=== PATIENT | female | born 1970 | race Caucasian/White ===

== ENCOUNTER 2020-10-13 13:33 | Observation (INO) | payer BC, SELFPAY ==
[2020-10-13 13:48] VITALS: BP 152/107; PULSE 101; RESP 14; TEMP 36.1; O2SAT 98; BMI 43.7
--- NOTE | 2020-10-13 14:03 | XRR_ITS ---
PROCEDURE INFORMATION: Exam: XR Chest, 1 View Exam date and time: 10/13/2020 2:05 PM Age: 50 years old Clinical indication: Chest pain; Type not specified TECHNIQUE: Imaging protocol: XR of the chest Views: 1 view. COMPARISON: No relevant prior studies available. FINDINGS: Lungs: No consolidation. Pleural space: No pleural effusion. No pneumothorax. Heart/Mediastinum: No cardiomegaly. Bones/joints: Unremarkable. XR/XR chest 1V portable [id number] IMPRESSION: No acute cardiopulmonary disease demonstrated.
[2020-10-13 14:21] LABS: Basophils # 0.1 10^3/uL (0.0-0.1); Basophils % 0.7 %; Eosinophils # 0.2 10^3/uL (0.0-0.8); Eosinophils % 1.7 %; Hematocrit 36.5 % (37.0-47.0); Lymphocytes % 21.5 %; Mean Corpuscular HGB Conc 30.1 g/dL (30.0-36.0); Mean Corpuscular Hemoglobin 22.9 pg (28.0-34.0); Mean Corpuscular Volume 75.9 fL (81-99); Mean Platelet Volume 11.7 fL (7.4-10.4); Monocytes # 0.7 10^3/uL (0.2-0.9); Monocytes % 7.1 %; Neutrophils % 68.7 %; Nucleated Red Blood Cells % 0 %; Platelet Count 436 10^3/cmm (130-400); Red Blood Count 4.81 10^6/uL (4.1-5.3); Red Cell Distribution Width 18.3 % (12.1-15.1); White Blood Count 9.5 10^3/uL (4.0-10.0)
[2020-10-13] MEDS: aspirin 81 mg Chew Tablet 324 MG PO (14:27)
[2020-10-13 14:34] LABS: D Dimer 0.33 ug/mIFEU (0-0.59)
--- NOTE | 2020-10-13 14:36 | PC.NURSE ---
Pt states her chest pain is very mild at rest and only starts to hurt when she exerts herself, pt does not wish to take the nitroglycerin at this time. Dr. Bonilla notified.
[2020-10-13 14:39] LABS: Troponin(5th) Baseline 60 ng/L (0-10)
--- NOTE | 2020-10-13 14:40 | ED_ITS ---
HPI - Chest Pain General: Chief Complaint: Chest Pain Stated Complaint: chest pain Time Seen by Provider: 10/13/20 13:52 History of Present Illness: HPI narrative: The patient is a 50-year-old female with past medical history hypertension and diabetes. She says about 3 weeks ago she started having midsternal chest pain that radiates to her left neck and sometimes in between her shoulder blades. She said she made lots of excuses for what was actually causing her symptoms but eventually settled that it might be her heart. Her symptoms are worse with exertion and sometimes happen while she is shopping and walking at [employer]. When she rests the pain improves. The episodes have been increasing in number and length and last night she was woken from her sleep with the pressure and it has continued. Any exertion makes it worse and when she rests it does improve however she is worried. She says currently it is a 5 out of 10. I ordered nitroglycerin and she declined taking it saying her chest does not hurt right now she does not need it. No prior history of coronary artery disease known MD complaint: chest heaviness and chest discomfort Timing of current episode: episodic Onset: during rest and during exertion Pain location: substernal Pain radiation: back and neck Severity: moderate Quality: tightness and heaviness Relieving factors: remaining still and other (rest) Associated symptoms: Reports no associated symptoms, abdominal pain and dyspnea; Deny fever(s), leg edema, nausea, palpitations or vomiting Treatment prior to arrival: none Review of Systems General: Reports: 10 or more systems reviewed and unremarkable except in HPI and below Const: Denies: fever(s) Eyes: Denies: change in vision, blurry vision or eye redness ENMT: Denies: throat pain, swelling of lips/tongue, ear or mastoid pain or nasal congestion Card: Reports: chest pain; Denies: palpitations, irregular heart rhythm, edema, swelling of feet/ankles, dyspnea on exertion or orthopnea Resp: Reports: dyspnea GI: Reports: abdominal pain; Denies: nausea or vomiting : Denies: flank pain, difficulty voiding, urinary frequency or urinary urgency Musc: Denies: neck pain, back pain, extremity pain, joint pain, joint redness, limited range of motion or muscle weakness Skin/Breast: Denies: rash, pruritus, erythema, skin pain or skin tenderness Neuro: Denies: headache(s), numbness in extremities, weakness in extremities, sensory changes, difficulty walking, dizziness, confusion or Slurred speech present Psych: Denies: anxiety or depression Endo: Denies: polyuria All/Imm: Denies: urticaria, throat swelling or tongue swelling PFSH ED PFSH: Medical History (Updated 10/13/20 @ 18:17 by Cesar Wilkerson MD) Hypertension Hypothyroidism Type 2 diabetes mellitus Surgical History (Updated 10/13/20 @ 18:19 by Cesar Wilkerson MD) History of Family History (Updated 10/13/20 @ 18:20 by Cesar Wilkerson MD) Mother Rheumatoid arthritis Leukemia Father Type 1 diabetes mellitus Social History (Updated 10/13/20 @ 18:19 by Cesar Wilkerson MD) Smoking and tobacco status: never smoked Alcohol intake: never Substance/Drug Use: never Physical Exam Const: COMMON NORMALS: no acute distress, average body habitus, patient oriented x3, no limitations, healthy appearing, alert and well nourished GENERAL APPEARANCE: cooperative, comfortable, well kempt and well developed ORIENTATION/CONSCIOUSNESS: Yes awake, Yes oriented to person, Yes oriented to place and Yes oriented to time HENMT: COMMON NORMALS: normocephalic, external ears normal and Normal external nose present HEAD & SCALP: normal to inspection and normocephalic NOSE: Normal external nose present EXTERNAL EAR: Yes external ears normal MOUTH: Normal oral and palatal mucosa present THROAT: posterior oropharynx normal Eye: COMMON NORMALS: Equal, round and reactive pupils present and EOMs intact bilaterally GENERAL EYE: appearance normal, both eyes and all related structures PUPIL: Yes Equal, round and reactive pupils present Neck/C-Spine: COMMON NORMALS: full ROM, no lymphadenopathy, no meningeal signs and no JVD GENERAL: Yes normal visual inspection Lymph: LYMPHATIC: no lymphadenopathy noted Chest: COMMONS NORMALS: normal inspection of the chest and normal palpation of entire chest wall Resp: COMMON NORMALS: normal respiratory effort, No retractions, No use of accessory muscles, clear to auscultation bilaterally and percussion normal EFFORT & INSPECTION: Yes able to speak in complete sentences AUSCULTATION: clear to auscultation bilaterally PERCUSSION: percussion normal Cardio: COMMON NORMALS: no JVD, regular rhythm, S1 normal heart sound present, S2 normal heart sound present and Peripheral pulses 2+ throughout RATE: tachycardic (rate 100. anxious.) RHYTHM: regular rhythm HEART SOUNDS: S1 normal heart sound present and S2 normal heart sound present PERIPHERAL PULSES: Peripheral pulses 2+ throughout GI: COMMON NORMALS: Normal to inspection, nondistended, normoactive bowel sounds present, Soft to palpation, non-tender and no masses INSPECTION: Yes normal to inspection PALPATION: Yes Soft to palpation : COMMON NORMALS: Yes no CVA tenderness BLADDER/KIDNEY EXAM: Yes no CVA tenderness Back/Pelvis: COMMON NORMALS: no CVA tenderness, thoracic and lumbar spine normal to inspection, no thoracic nor lumbar tenderness and thoraco-lumbar ROM normal Extremity: COMMON NORMALS: normal to inspection, full ROM, capillary refill normal, no joint enlargement and no pedal edema GENERAL: Yes normal exam except as noted Neuro: COMMON NORMALS: patient oriented x3, CN's II-XII intact bilaterally, moves all extremities, no focal motor deficits, no sensory deficits noted and gait normal SENSORIUM/ORIENTATION: Yes alert, Yes oriented to person, Yes oriented to place and Yes oriented to time MENINGEAL SIGNS: Yes no meningeal signs Psych: COMMON NORMALS: mental status grossly normal, Normal thought process present, cooperative, normal affect and speech normal APPEARANCE: Yes well kempt ATTITUDE: Yes calm SPEECH: Yes normal speech THOUGHT PROCESS: Normal thought process present Skin: COMMON NORMALS: no rashes or lesions noted GENERAL SKIN EXAM: no rashes or lesions noted Course Vital Signs: Vital signs: Vital Signs Temperature 97.0 F L 10/13/20 13:48 Pulse Rate 100 10/13/20 18:29 Respiratory Rate 20 H 10/13/20 18:29 Blood Pressure 148/104 10/13/20 18:29 Pulse Oximetry 99 10/13/20 17:48 MDM - Chest Pain MDM Narrative: Medical decision making narrative: The patient is a 50-year-old female who came in with typical angina symptoms. Troponin and EKG were normal. Discussed with the patient and recommended admission upstairs. She understands and accepts this. Dr. Wilkerson accepts for observation upstairs to the cardiac stepdown unit Differential Diagnosis: Cardiac arrest differential diagnosis: Likely acute myocardial infarction Lab Data: Labs: Lab Results 12/25/20 12/25/20 12/25/20 Range/Units 14:08 14:08 14:08 WBC 9.5 (4.0-10.0) 10^3/ uL RBC 4.81 (4.1-5.3) 10^6/u L Hgb 11.0 L (11.5-15.3) g/dL Hct 36.5 L (37.0-47.0) % MCV 75.9 L (81-99) fL MCH 22.9 L (28.0-34.0) pg MCHC 30.1 (30.0-36.0) g/dL RDW 18.3 H (12.1-15.1) % Plt Count 436 H (130-400) 10^3/c mm MPV 11.7 H (7.4-10.4) fL Neut % (Auto) 68.7 % Lymph % (Auto) 21.5 % [place] % (Auto) 7.1 % Eos % (Auto) 1.7 % Baso % (Auto) 0.7 % Neut # (Auto) 6.50 (1.8-7.7) 10^3/u L Lymph # (Auto) 2.0 (0.8-4.8) 10^3/u L [place] # (Auto) 0.7 (0.2-0.9) 10^3/u L Eos # (Auto) 0.2 (0.0-0.8) 10^3/u L Baso # (Auto) 0.1 (0.0-0.1) 10^3/u L Nucleated RBC % (a uto) 0 % Nucleated RBCs # 0.0 /100WBC D-Dimer 0.33 (0-0.59) ug/mIFE U Sodium 138 (136-145) mmol/L Potassium 4.4 (3.5-5.1) mmol/L Chloride 101 (98-107) mmol/L Carbon Dioxide 26 (22-29) mmol/L Anion Gap 15.4 (5-19) BUN 12 (6-20) mg/dL Creatinine 0.8 (0.5-0.9) mg/dL GFR Calculation 75.9 L (90-130) mL/min Glucose 142 H (65-115) mg/dL Estimat Average Gl ucose Hemoglobin A1c (4.0-6.0) % Calculated Osmolal ity 288 (285-295) mOsm/k g Calcium 9.4 (8.5-10.5) mg/dL Total Bilirubin 0.4 (0.15-1.2) mg/dL AST 14 (0-32) U/L ALT 15 (0-33) U/L Alkaline Phosphata se 99 (35-105) IU/L Troponin T Baselin e (0-10) ng/L Troponin T 120 Min [place] (0-10) ng/L Delta Troponin T (0-10) ABS# NT-Pro-B Natriuret Pep 187 H (0-125) pg/mL Total Protein 7.6 (6.6-8.7) g/dL Albumin 4.1 (3.5-5.2) g/dL Globulin 3.5 (1.3-4.6) g/dL Urine Color (Yellow) Urine Appearance (CLEAR) Urine pH (5-7) Ur Specific Gravit y (1.005-1.030) Urine Protein (Negative) Urine Glucose (UA) (Normal) Urine Ketones (Negative) Urine Blood (Negative) Urine Nitrate (Negative) Urine Bilirubin (Negative) Urine Urobilinogen (Negative) mg/dL Ur Leukocyte Yessenia ase (Negative) 10/13/20 10/13/20 10/13/20 Range/Units 14:08 14:08 14:20 WBC (4.0-10.0) 10^3/ uL RBC (4.1-5.3) 10^6/u L Hgb (11.5-15.3) g/dL Hct (37.0-47.0) % MCV (81-99) fL MCH (28.0-34.0) pg MCHC (30.0-36.0) g/dL RDW (12.1-15.1) % Plt Count (130-400) 10^3/c mm MPV (7.4-10.4) fL Neut % (Auto) % Lymph % (Auto) % [place] % (Auto) % Eos % (Auto) % Baso % (Auto) % Neut # (Auto) (1.8-7.7) 10^3/u L Lymph # (Auto) (0.8-4.8) 10^3/u L [place] # (Auto) (0.2-0.9) 10^3/u L Eos # (Auto) (0.0-0.8) 10^3/u L Baso # (Auto) (0.0-0.1) 10^3/u L Nucleated RBC % (a uto) % Nucleated RBCs # /100WBC D-Dimer (0-0.59) ug/mIFE U Sodium (136-145) mmol/L Potassium (3.5-5.1) mmol/L Chloride (98-107) mmol/L Carbon Dioxide (22-29) mmol/L Anion Gap (5-19) BUN (6-20) mg/dL Creatinine (0.5-0.9) mg/dL GFR Calculation (90-130) mL/min Glucose (65-115) mg/dL Estimat Average Gl ucose 148 Hemoglobin A1c 6.8 H (4.0-6.0) % Calculated Osmolal ity (285-295) mOsm/k g Calcium (8.5-10.5) mg/dL Total Bilirubin (0.15-1.2) mg/dL AST (0-32) U/L ALT (0-33) U/L Alkaline Phosphata se (35-105) IU/L Troponin T Baselin e 60 H (0-10) ng/L Troponin T 120 Min [place] (0-10) ng/L Delta Troponin T (0-10) ABS# NT-Pro-B Natriuret Pep (0-125) pg/mL Total Protein (6.6-8.7) g/dL Albumin (3.5-5.2) g/dL Globulin (1.3-4.6) g/dL Urine Color Straw (Yellow) Urine Appearance Clear (CLEAR) Urine pH 5 (5-7) Ur Specific Gravit y 1.020 (1.005-1.030) Urine Protein Neg (Negative) Urine Glucose (UA) Norm (Normal) Urine Ketones Negative (Negative) Urine Blood Neg (Negative) Urine Nitrate Negative (Negative) Urine Bilirubin Neg (Negative) Urine Urobilinogen Norm (Negative) mg/dL Ur Leukocyte Yessenia ase Negative (Negative) 10/13/ Range/Units 15:47 WBC (4.0-10.0) 10^3/ uL RBC (4.1-5.3) 10^6/u L Hgb (11.5-15.3) g/dL Hct (37.0-47.0) % MCV (81-99) fL MCH (28.0-34.0) pg MCHC (30.0-36.0) g/dL RDW (12.1-15.1) % Plt Count (130-400) 10^3/c mm MPV (7.4-10.4) fL Neut % (Auto) % Lymph % (Auto) % [place] % (Auto) % Eos % (Auto) % Baso % (Auto) % Neut # (Auto) (1.8-7.7) 10^3/u L Lymph # (Auto) (0.8-4.8) 10^3/u L [place] # (Auto) (0.2-0.9) 10^3/u L Eos # (Auto) (0.0-0.8) 10^3/u L Baso # (Auto) (0.0-0.1) 10^3/u L Nucleated RBC % (a uto) % Nucleated RBCs # /100WBC D-Dimer (0-0.59) ug/mIFE U Sodium (136-145) mmol/L Potassium (3.5-5.1) mmol/L Chloride (98-107) mmol/L Carbon Dioxide (22-29) mmol/L Anion Gap (5-19) BUN (6-20) mg/dL Creatinine (0.5-0.9) mg/dL GFR Calculation (90-130) mL/min Glucose (65-115) mg/dL Estimat Average Gl ucose Hemoglobin A1c (4.0-6.0) % Calculated Osmolal ity (285-295) mOsm/k g Calcium (8.5-10.5) mg/dL Total Bilirubin (0.15-1.2) mg/dL AST (0-32) U/L ALT (0-33) U/L Alkaline Phosphata se (35-105) IU/L Troponin T Baselin e (0-10) ng/L Troponin T 120 Min [place] 63.25 H (0-10) ng/L Delta Troponin T 3.25 (0-10) ABS# NT-Pro-B Natriuret Pep (0-125) pg/mL Total Protein (6.6-8.7) g/dL Albumin (3.5-5.2) g/dL Globulin (1.3-4.6) g/dL Urine Color (Yellow) Urine Appearance (CLEAR) Urine pH (5-7) Ur Specific Gravit y (1.005-1.030) Urine Protein (Negative) Urine Glucose (UA) (Normal) Urine Ketones (Negative) Urine Blood (Negative) Urine Nitrate (Negative) Urine Bilirubin (Negative) Urine Urobilinogen (Negative) mg/dL Ur Leukocyte Yessenia ase (Negative) Discharge Plan Discharge Patient Disposition: Placed in Observation Admit Provider: Cesar Wilkerson Clinical Impression: Chest pain Qualifiers: Chest pain type: unspecified Qualified Code(s): R07.9 - Chest pain, unspecified Discharge Diet: Usual diet Discharge Activity: Resume usual activity Coding Level of Care Code ED Operating Room Surgical Technologist for [facility] Fwd Exam Comprehensive
[2020-10-13 14:47] LABS: Alanine Aminotransferase 15 U/L (0-33); Albumin Level 4.1 g/dL (3.5-5.2); Alkaline Phosphatase 99 IU/L (35-105); Anion Gap 15.4 (5-19); Aspartate Amino Transferase 14 U/L (0-32); Blood Urea Nitrogen 12 mg/dL (6-20); Calcium 9.4 mg/dL (8.5-10.5); Carbon Dioxide 26 mmol/L (22-29); Chloride 101 mmol/L (98-107); Globulin 3.5 g/dL (1.3-4.6); Glomerular Filtration Rate 75.9 mL/min (90-130); Glucose 142 mg/dL (65-115); NT Pro B Type Natriuretic Pept 187 pg/mL (0-125); Osmolality Calculated 288 mOsm/kg (285-295); Potassium 4.4 mmol/L (3.5-5.1); Sodium 138 mmol/L (136-145); Total Bilirubin 0.4 mg/dL (0.15-1.2); Total Protein 7.6 g/dL (6.6-8.7)
[2020-10-13 14:51] LABS: Add Urine Microscopic? NO
[2020-10-13 14:53] LABS: Bilirubin Urine Neg (Negative); Blood Urine Neg (Negative); Glucose Urine UA Norm (Normal); Ketones Urine Negative (Negative); Leukocyte Esterase Urine Negative (Negative); Nitrate Urine Negative (Negative); Protein Urine Neg (Negative); Urine Appearance Clear (CLEAR); Urine Color Straw (Yellow); Urobilinogen Urine Norm (Negative); pH Urine 5 (5-7)
--- NOTE | 2020-10-13 16:03 | ECG_ITS ---
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 Measurements Intervals [place] Rate: 86 P: 28 AK: 162 QRS: 21 QRSD: 88 T: 12 QT: 350 QTc: 421 Interpretive Statements SINUS RHYTHM MINIMAL ST DEPRESSION [0.025+ mV ST DEPRESSION] No previous ECG available for comparison Electronically Signed On 10-14-2020 16:59:53 AUDITING CODER by Nomi Dolan M.D. [email or web address]/store/OM/[id number]
[2020-10-13 16:10] LABS: Troponin 5 2HR 63.25 ng/L (0-10); Troponin 5 2HR Delta 3.25 ABS# (0-10)
--- NOTE | 2020-10-13 16:57 | PC.NURSE ---
EKG done at 1635 and shown to ER doctor
[2020-10-13 17:48] VITALS: BP 151/84; PULSE 83; RESP 14; O2SAT 99
--- NOTE | 2020-10-13 18:15 | P.HP_ITS ---
Providers/Chief Complaint Admitting Physician: Cesar Wilkerson MD Primary Care Provider: Alondra Aden APN Chief Complaint: chest pain History of Present Illness Ira Leal is a 50 year old female this is a 50-year-old female with a past medical history of hypothyroidism, noninsulin-dependent type 2 diabetes mellitus, hypertension, who presents [facility] due to chest pain and shortness of breath. Patient tells me that for the last 3 weeks she has been having chest pain and shortness of breath with exertion. She describes the chest pain is substernal, sometimes achy sometimes sharp, lasting a few minutes to a few hours, typically associated with exertion, radiates to the back, radiates to the jaw, associated with shortness of breath. She tells me that she found it very odd that with minimal exertion she was feeling short of breath, improved with rest. She tells me last night she was developing substernal chest pain that would wake her up in the middle of night. No diaphoresis, no lightheaded, dizziness. No cardiovascular history. No history of CHF. No history of smoking. No cough, no sinus symptoms, no loss of taste, no loss of smell, no known exposure to COVID-19, is never tested positive for COVID-19, last hemoglobin A1c is 6, blood pressures are well controlled Review of Systems Const: Denies: fever(s), chills, fatigue or malaise Eyes: Denies: change in vision or blurry vision ENMT: Denies: nasal congestion Card: Reports: chest pain Resp: Reports: dyspnea; Denies: productive cough, non-productive cough or wheezing GI: Denies: abdominal pain, nausea, vomiting, hematemesis, diarrhea, constipation, hematochezia or melena : Denies: flank pain, dysuria or urinary frequency Musc: Denies: neck pain or back pain Skin/Breast: Denies: rash Neuro: Denies: headache(s), dizziness or vertigo Psych: Denies: anxiety or depression Endo: Denies: polyuria or polydipsia Medications/Allergies Home Medications Medication Instructions Recorded Confirmed Last Taken Type acetaminophen [Tylenol] 325 mg PO QID PRN 10/13/20 10/13/20 Unknown History guaifenesin [Mucinex] 600 mg PO Q12H PRN 10/13/20 10/13/20 Unknown History levothyroxine [Synthroid] 150 mcg PO DAILY@0700 10/13/20 10/13/20 Unknown History metformin 500 mg PO DAILY@0700 10/13/20 10/13/20 Unknown History metoprolol succinate 50 mg PO BID@0700,2100 10/13/20 10/13/20 Unknown History Allergies Allergy/AdvReac Type Severity Reaction Status Date / Time No Known Allergies Allergy Verified 10/13/20 13:47 PFSH Acute PFSH: Medical History (Updated 10/13/20 @ 18:17 by Cesar Wilkerson MD) Hypertension Hypothyroidism Type 2 diabetes mellitus Surgical History (Updated 10/13/20 @ 18:19 by Cesar Wilkerson MD) History of Family History (Updated 10/13/20 @ 18:20 by Cesar Wilkerson MD) Mother Rheumatoid arthritis Leukemia Father Type 1 diabetes mellitus Social History (Updated 10/13/20 @ 18:19 by Cesar Wilkerson MD) Smoking and tobacco status: never smoked Alcohol intake: never Substance/Drug Use: never Vitals/I&O/Wt Last Vital Signs Temp 97.0 F L 10/13/20 13:48 Pulse 83 10/13/20 17:48 Resp 14 10/13/20 17:48 BP 151/84 10/13/20 17:48 Pulse Ox 99 10/13/20 17:48 Weight last 48 hrs Weight 112.037 kg Physical Exam Const: COMMON NORMALS: no acute distress and patient oriented x3 GENERAL APPEARANCE: cooperative and comfortable HENMT: COMMON NORMALS: normocephalic HEAD & SCALP: normocephalic Eye: COMMON NORMALS: Equal, round and reactive pupils present and EOMs intact bilaterally GENERAL EYE: appearance normal, both eyes and all related structures PUPIL: Yes Equal, round and reactive pupils present Neck/C-Spine: COMMON NORMALS: full ROM, no lymphadenopathy, no JVD and Thyroid normal THYROID: Thyroid normal Lymph: LYMPHATIC: no lymphadenopathy noted Resp: COMMON NORMALS: normal respiratory effort, No retractions, No use of accessory muscles and clear to auscultation bilaterally AUSCULTATION: clear to auscultation bilaterally Cardio: COMMON NORMALS: no JVD, regular rate, regular rhythm, S1 normal heart sound present, S2 normal heart sound present, No gallops present (Cardio), No clicks present (Cardio) and No murmurs present (Cardio) RATE: regular rate RHYTHM: regular rhythm HEART SOUNDS: S1 normal heart sound present and S2 normal heart sound present GI: COMMON NORMALS: Normal to inspection, nondistended, normoactive bowel sounds present, Soft to palpation, non-tender and No hepatosplenomegaly present PALPATION: Yes Soft to palpation and Yes No hepatosplenomegaly present Extremity: COMMON NORMALS: normal to inspection, full ROM and no pedal edema Neuro: COMMON NORMALS: patient oriented x3, CN's II-XII intact bilaterally, moves all extremities and no focal motor deficits Psych: COMMON NORMALS: mental status grossly normal, Normal thought process present and cooperative THOUGHT PROCESS: Normal thought process present Data : 10/13/20 14:08 10/13/20 14:08 A&P Assessment and plan (1) Chest pain: -Chest pain and shortness of breath with exertion -First troponin 60, 120-minute 63.25, delta 3.25 -BNP 187 -D-dimer 0.33 -No significant leukocytosis -EKG shows ST depressions 2, 3 aVF -No active chest pain Plan: -Admit to cardiac stepdown unit -Aspirin, statin, metoprolol -Nitro as needed -Serial troponins, serial EKGs -No current need for therapeutic Lovenox, however if troponins elevate and has significant delta we will start her EKG changes or recurrent chest pain -Echocardiogram ordered -We will discuss with cardiology once full work-up is back -Full code -Lovenox for DVT prophylaxis Status: Acute Qualifiers: Chest pain type: unspecified Qualified Code(s): R07.9 - Chest pain, unspecified (2) Hypothyroidism: Continue levothyroxine Status: Acute (3) Type 2 diabetes mellitus: Low-dose sliding scale Status: Acute (4) Hypertension: Metoprolol Status: Acute Attestations Medical Necessity Statement*: Patient requires hospitalization outpatient with observation, for chest pain Coding Level of Care Code Acute [facility] Diagnoses Chest pain R07.9 Chest pain type: unspecified Hypothyroidism E03.9 Type 2 diabetes mellitus E11.9 Hypertension I10
[2020-10-13 18:29] VITALS: BP 148/104; PULSE 100; RESP 20
[2020-10-13 19:04] LABS: Estmated Average Glucose 148; Hemoglobin A1C 6.8 % (4.0-6.0)
[2020-10-13 19:21] LABS: C Reactive Protein 12.4 mg/L (0.0-4.9); Magnesium 1.9 mg/dL (1.7-2.3); Thyroid Stimulating Hormone 4.24 uIU/mL (0.27-4.20)
[2020-10-13] MEDS: enoxaparin 40 mg/0.4 mL Syringe SUBCUT (19:23)
[2020-10-13 20:02] LABS: Erythrocyte Sedimentation Rate 27 mm/hr (0-15)
--- NOTE | 2020-10-13 20:03 | ECG_ITS ---
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 Measurements Intervals [place] Rate: 82 P: 39 SC: 169 QRS: 37 QRSD: 90 T: 44 QT: 376 QTc: 442 Interpretive Statements SINUS RHYTHM Compared to ECG 10/13/2020 16:31:43 ST (T wave) deviation no longer present Electronically Signed On 10-14-2020 16:59:04 LABEL DESIGNER by Nomi Dolan M.D. [id number]
[2020-10-13 20:40] VITALS: BP 134/87; PULSE 89; RESP 20; TEMP 36.7; O2SAT 96
[2020-10-13] MEDS: metoprolol succinate ER (24 HR) 50 mg Tablet PO (20:42)
[2020-10-13] MEDS: atorvastatin 40 mg Tablet PO (20:42)
[2020-10-13 21:07] LABS: Troponin 5 6HR 75.08 ng/L (0-10)
[2020-10-13 21:11] LABS: Troponin 5 6HR Delta 15.08 ng/L (0-12)
[2020-10-13 22:00] VITALS: PULSE 74
[2020-10-13 23:12] VITALS: PULSE 70; RESP 16; O2SAT 96
[2020-10-14] VITALS (17 sets, daily range): BP systolic 110–156; BP diastolic 69–96; PULSE 66–106; RESP 10–20; TEMP 35.9–37.1; O2SAT 95–99
[2020-10-14 04:27] LABS: Basophils # 0.1 10^3/uL (0.0-0.1); Eosinophils # 0.2 10^3/uL (0.0-0.8); Hematocrit 33.1 % (37.0-47.0); Hemoglobin 9.6 g/dL (11.5-15.3); Lymphocytes # 2.4 10^3/uL (0.8-4.8); Lymphocytes % 30.7 %; Mean Corpuscular Hemoglobin 22.4 pg (28.0-34.0); Mean Corpuscular Volume 77.3 fL (81-99); Mean Platelet Volume 11.6 fL (7.4-10.4); Monocytes # 0.9 10^3/uL (0.2-0.9); Monocytes % 11.2 %; Neutrophils # 4.31 10^3/uL (1.8-7.7); Neutrophils % 54.8 %; Nucleated Red Blood Cells % 0 %; Platelet Count 371 10^3/cmm (130-400); Red Blood Count 4.28 10^6/uL (4.1-5.3); Red Cell Distribution Width 18.6 % (12.1-15.1); White Blood Count 7.9 10^3/uL (4.0-10.0)
[2020-10-14 04:48] LABS: Albumin Level 3.7 g/dL (3.5-5.2); Alkaline Phosphatase 82 IU/L (35-105); Chloride 103 mmol/L (98-107); Sodium 138 mmol/L (136-145)
[2020-10-14] MEDS: levothyroxine 150 mcg Tablet PO (07:10)
[2020-10-14] MEDS: metoprolol succinate ER (24 HR) 50 mg Tablet PO ×2 (07:10→20:32)
[2020-10-14 07:28] LABS: Alanine Aminotransferase 13 U/L (0-33); Aspartate Amino Transferase 13 U/L (0-32); Blood Urea Nitrogen 16 mg/dL (6-20); Calcium 8.8 mg/dL (8.5-10.5); Carbon Dioxide 24 mmol/L (22-29); Globulin 3.4 g/dL (1.3-4.6); Glomerular Filtration Rate 88.6 mL/min (90-130); Glucose 143 mg/dL (65-115); Osmolality Calculated 290 mOsm/kg (285-295); Phosphorus 3.6 mg/dL (2.5-4.5); Total Bilirubin 0.3 mg/dL (0.15-1.2); Total Protein 7.1 g/dL (6.6-8.7)
[2020-10-14] MEDS: clopidogrel 300 mg Tablet PO (08:31)
[2020-10-14] MEDS: aspirin 81 mg EC Tablet PO (08:32)
[2020-10-14] MEDS: heparin 5,000 unit/mL INJ 1 mL IV (08:32)
[2020-10-14] MEDS: heparin drip 25,000 UNIT/500 ML PREMIX 31 UNIT IV (08:32)
[2020-10-14 08:47] LABS: Folate Level 4.1 ng/mL (4.8-37.3)
[2020-10-14 08:48] LABS: Ferritin 10 ng/mL (15-150); Iron 19 ug/dL (37-145); Vitamin B12 230 pg/mL (232-1245)
--- NOTE | 2020-10-14 09:48 | PM.CONSULT ---
Providers/Reason For Consult Consulting Physican/Specialty*: Nomi Dolan MD/Cardiology Reason for Consult*: NSTEMI Attending Physician: Cesar Wilkerson MD Primary Care Provider: Alondra Aden APN History of Present Illness History of Present Illness 50-year-old female with a past medical history of hypothyroidism, noninsulin-dependent type 2 diabetes mellitus, hypertension, who presents to hospital with chest pain and shortness of breath. Per patient for the last 3 weeks she has been having chest pain and shortness of breath with exertion. She describes the chest pain is substernal, sometimes achy sometimes sharp, lasting a few minutes to a few hours, typically associated with exertion, radiates to the back, radiates to the jaw, associated with shortness of breath. She got concerned last night as pain woke her up from sleep. She does not have any prior history of cardiac disease. Her initial troponin was 60 that trended up to 75 6 hours. She is no longer having chest pain. EKG shows borderline ST depressions in inferior leads. Review of Systems Narrative: CONSTITUTIONAL: No fever chills weight loss or gain or night sweats. [] HEENT: Normocephalic, atraumatic.[] RESPIRATORY: No cough, sputum, hemoptysis or wheezing.[] CARDIOVASCULAR: Has shortness of breath, chest pain, no PND, orthopnea, lower extremity edema, presyncope or syncope. [] GI: no nausea vomiting diarrhea. [] [employer]: No numbness, tingling, weakness or loss of function in any part of the body. [] MUSCULOSKELETAL: No knee or joint pain or rashes. [] Meds/Allergies Home Medications and Allergies Home Medications Medication Instructions Recorded Confirmed Last Taken Type acetaminophen [Tylenol] 325 mg PO QID PRN 10/13/20 10/13/20 Unknown History guaifenesin [Mucinex] 600 mg PO Q12H PRN 10/13/20 10/13/20 Unknown History levothyroxine [Synthroid] 150 mcg PO DAILY@0700 10/13/20 10/13/20 Unknown History metformin 500 mg PO DAILY@0700 10/13/20 10/13/20 Unknown History metoprolol succinate 50 mg PO BID@0700,2100 10/13/20 10/13/20 Unknown History Allergies Allergy/AdvReac Type Severity Reaction Status Date / Time No Known Allergies Allergy Verified 10/13/20 13:47 Current Medications Current Medications Generic Name Dose Route Start Last Admin Trade Name Freq PRN Reason Stop Dose Admin Aspirin 81 mg 10/14/20 09:00 10/14/20 08:32 Aspirin 81 Mg Ec Tablet PO 81 mg DAILY TOBISA Administration Atorvastatin Calcium 40 mg 10/13/20 21:00 10/13/20 20:42 Atorvastatin 40 Mg Tablet PO 40 mg BEDTIME TOBIAS Administration Heparin Sodium (Beef Lung) 0 unit 10/14/20 07:51 10/14/20 08:32 Heparin 5,000 Unit/Ml Inj 1 Ml IV 5,500 unit PRN PRN Administration Heparin weight-base protocol Protocol Heparin Sodium/Sodium Chloride 25,000 unit in 500 mls @ 0 mls/hr 10/14/20 08:00 10/14/20 08:32 Heparin Drip IV 13.83 unit/kg/hr .Q0M TOBIAS 31 mls/hr Administration Protocol Per Protocol Levothyroxine Sodium 150 mcg 10/14/20 07:00 10/14/20 07:10 Levothyroxine 150 Mcg Tablet PO 150 mcg DAILY@0700 TOBIAS Administration Metoprolol Succinate 50 mg 10/13/20 21:00 10/14/20 07:10 Metoprolol Succinate Er (24 Hr) 50 Mg Tablet PO 50 mg BID@0700,2100 TOBIAS Administration PFSH Acute PFSH: Medical History Hypertension Hypothyroidism Type 2 diabetes mellitus Surgical History History of Family History Mother Rheumatoid arthritis Leukemia Father Type 1 diabetes mellitus Social History Smoking and tobacco status: never smoked Alcohol intake: never Substance/Drug Use: never Vitals/I&O/Wt Last Vital Signs Temp 98.3 F 10/14/20 07:30 Pulse 67 10/14/20 07:30 Resp 14 10/14/20 07:30 BP 130/69 10/14/20 07:30 Pulse Ox 99 10/14/20 07:30 10/13/20 10/14/20 10/14/20 22:59 06:59 14:59 Intake Total 50 / 50 0 / 50 0 / 0 Output Total 0 / 0 Balance 50 / 50 0 / 50 0 / 0 Weight last 48 hrs Weight 244 lb Weight 247 lb Physical Exam Narrative: EXAM NARRATIVE: GENERAL: Patient is alert, awake and oriented x3. [] NECK: No jugular vein distension. [] HEENT: No cyanosis. No icterus. No pallor. [] HEART: Regular S1 and S2. No murmur, rub or gallop. [] LUNGS: Clear to auscultate bilaterally. [] ABDOMEN: Soft, nontender and nondistended. Positive bowel sounds. No guarding, rebound or tenderness. [] CENTRAL NERVOUS SYSTEM: Grossly nonfocal. [] EXTREMITIES: Lower extremities with no edema bilaterally. Pulses palpable in the lower extremities, both dorsalis pedis and posterior tibial. [] A&P Assessment and plan (1) NSTEMI (non-ST elevated myocardial infarction): Status: Acute (2) Type 2 diabetes mellitus: Status: Acute (3) Hypothyroidism: Status: Acute (4) Hypertension: Status: Acute Patient has typical chest pain symptoms and has troponin elevation. We will proceed with coronary angiography with possible percutaneous coronary intervention. I have discussed in detail risks and benefits of the procedure. Risks including bleeding, infection, abnormal kidney function, abnormal heart rhythm, heart attack, stroke or have been described. Patient understands the risks and benefits and wants to proceed with procedure. Continue aspirin and Plavix. Continue heparin drip. Order echocardiogram. Thank you for involving us with care of this patient. Please call with questions Coding Level of Care Code Acute Front Desk Agent for Demetrio Fwd Diagnoses NSTEMI (non-ST elevated myocardial infarction) I21.4 Type 2 diabetes mellitus E11.9 Hypothyroidism E03.9 Hypertension I10
--- NOTE | 2020-10-14 10:30 | XACV_ITS ---
Exam Room: [facility] Ht: 160 cm Wt: 111 kg BSA: 2.28 m2 Gender: Female : 1970 Any Known Allergies: No known allergies Exam Priority: Routine Procedure(s): Procedure Description: Diagnostic procedure Procedure Description: PCI procedure Procedure Description: Left Heart Catheterization Procedure Description: Drug Eluting Coronary Stent Procedure Description: PTCA Procedure Description: Miscellaneous Procedure Description: ACT Procedure Description: Coronary Angiography Diagnostic Cath Status: Urgent Diagnostic Findings * LM has mild luminal irregularities. * CX is a large vessel and gives rise to 2 large OM branches. No significant stenosis is noted in the left circumflex system. * LAD is a large vessel. * It has proximal to * mid Left Anterior Descending Coronary Artery: Severe 95% stenosis, ALTA: 2 flow. * RCA has 0% stenosis. * Coronary angiography shows right dominance. PCI Status: Urgent PCI Indication: NSTE - ACS Interventional Findings * IV heparin was administered to maintain an ACT above 250 seconds. XB 3.5 guide catheter was used to engage left main artery. We used a 0.014 run-through guidewire to cross the lesion and was placed in distal LAD. We used 2.5 x 15 mm semicompliant balloon to predilate the stenosis. This was followed by placement of 3.0 x 18 mm resolute Ham drug-eluting stent. At this time guidewire was removed and final angiogram was performed which showed ALTA-3 flow, no residual stenosis and excellent stent expansion. Guide catheter was removed. TR band was applied to achieve hemostasis. Patient left the Bottler in a stable condition.. * Mid Left Anterior Descending Coronary Artery: 95% stenosis treated with AB TREK 2.50X15 RX BALLOON and MDT R HAM 3.0X18 MI. 0% residual stenosis, ALTA: 3 flow. Conclusions 1. Proximal to 2. mid Left Anterior Descending Coronary Artery was treated with Balloon and Drug Eluting Stent. 3. There is severe coronary artery disease with one vessel disease. Recommendations * Transfer back to [facility]. * Aspirin and Plavix for at least 1 year. * Order echocardiogram. * Beta-jewel and lisinopril. * Patient follow-up with cardiology clinic in 4 weeks. Interventional RX Recommendation: PCI w/o planned CABG Diagnostic RX Recommendation: PCI w/o planned CABG Anticoagulation: Heparin Pressures Phase:Rest AO : 136 / 90 ( 111 ) @ 6:01:00 AM 131 / 87 ( 106 ) @ 6:01:00 AM 131 / 82 ( 102 ) @ 6:11:00 AM LV : 132 / -2 / @ 6:01:00 AM 129 / -1 / @ 6:01:00 AM Valves Phase:DefaultPhase AV : 0.0 @ 12:39:00 PM AV Mean Gradient: 0.0 @ 12:39:00 PM Clinical Evaluation EBL: 5mL-10mL Procedural Details Procedure Consent Obtained. Pre-Procedure Time Out. Identified patient by full name and date of as verbalized by the patient/guarantor. Does the consent match the physician's order: Yes. Accurate & Complete Informed Consent: Yes. Inpatient/Outpatient History & Physical on Chart: Yes. If H&P is completed, is and addenduem needed: No; If yes, is the addendum complete: N/A. Visualize and Verify Site with Patient/Guarantor: N/A. Relevant Radiology Images available: N/A. Pre-op teaching completed and patient verbalized understanding. The risks, benefits, and alternatives of sedation and/or procedure were discussed by physician. The patient agrees to continue. Procedure started. [facility] Clinical Fraility Score: 2: Well. Bottler Indications: ACS <= 24 hours. Chest Pain Symptom Assessment: Typical Angina Symptoms. Cardiovascular Instability: No. Correct patient, site and procedure confirmed by cath team. Physician arrived. PERRLA. Strong, equal hand wet finisher bilaterally. Lungs clear x 5 lobes. IV Site on Arrival: 20 gauge in the right anticubital. IV Fluids: 0.9% NaCl at KVO. 0 mL infused prior to sawyer cork slabs. Pre Procedural Pulses: bilateral radial was 2+. Oxygen started at 2liters/min via nasal canula. bilateral groins was prepped with chloroprep then draped in the usual sterile fashion. right radial was prepped with chloroprep then draped in the usual sterile fashion. Baseline sample Acquired. HR: 74 BPM. Equipment: 6F - Radial. Cardiac Cath Pack. ACIST Manifold Kit Model BT 2000. Heparinized Saline (2 units/mL), 1000 mL bag. Physician scrubbed in. Immediate Pre-Procedure Time Out. Correct Patient: Yes; Correct Procedure: Yes; Correct Site: Yes; Correct Patient Position: Yes; Correct Supplies: Yes; Dried Flammable Prep: Yes; Blood Products Available: N/A;. Lidocaine 1% infiltrated to the right radial. Arterial access obtained. A 5 cape verdean TIG catheter in over wire. EDP Sample taken: LV 132/-3,11; HR: 73 BPM; SpO2: Off%. Pullback taken: LV 129/-2,9; AO 136/90(111); Mean: 0mmHg, Peak to Peak: 0mmHg, SEP: 5sec/min; HR: 72 BPM; SpO2: Off%. ACT drawn. Results 126 seconds. Therapeutic limits - pre-heparin administration 90-150 seconds and monitoring heparin during a vascular procedure >250 seconds. Multiple views taken of left coronary artery. Catheter redirected to the RCA. Multiple views taken of right coronary artery. Catheter removed over the exchange wire. Inventory is CRD 6 FR XB 3.5 GUIDE. 6 cape verdean XB 3.5 guide catheter was inserted over the wire. ACT drawn. Results 194 seconds. Therapeutic limits - pre-heparin administration 90-150 seconds and monitoring heparin during a vascular procedure >250 seconds. Runthrough guidewire was advanced through the guide catheter to lesion in the mid LAD. Inflation number : 1 A AB LAUREANO 2.50X15 RX BALLOON was prepped and advanced across the Mid LAD , then inflated to 8 DIMITRIS for 0:13 seconds. Inflation number: 2 The AB TREK 2.50X15 RX BALLOON was reinflated across the Mid LAD, to 12 DIMITRIS for 0:26 seconds. Balloon out. Inflation Number : 3 A RAZA Garcia HAM 3.0X18 MI -Lot Number# [id number] exp date 04/24/2022 was prepped and advanced across the Mid LAD. The stent was deployed at 14 DIMITRIS for 0:29 seconds. Stent balloon out over wire. Wire out. Results checked. ACT drawn. Results 351 seconds. Therapeutic limits - pre-heparin administration 90-150 seconds and monitoring heparin during a vascular procedure >250 seconds. Guide catheter out. Physician scrubbed out. A TR Band was successful obtaining hemostatsis at the Right Radial artery insertion site. TR band placed. Hemostasis obtained. Post Procedure: Pulses reassessed and unchanged. PERRLA. Strong, equal hand wet finisher bilaterally. No VTE prophylaxis required. Medication's Wasted: Lidocaine 1% = 18 mL. Medication's Wasted: Nitro = 49.6 mg. Medication's Wasted: Heparin = 1000 units. Total IV fluids: 75 mL. Contrast type used: Omnipaque 300 mgI/mL, 500 mL bottle. Post-op diagnosis: severe mid LAD stenosis. Complications: none. Estimated blood loss: 5mL-10mL. PCI Indication: NSTE. Procedure completed. Patient transferred by wheelchair to 1st floor. Vital chart was stopped. Access Site Site: Right Radial artery Sheath Size: 6 Fr Hemostasis Method: TR Band Hemostasis Success: Successful Procedure Medications Start: 11:49 AM Stop: 11:49 AM Medication: Versed Amount: 1 mg Route: I.V. Start: 11:49 AM Stop: 11:49 AM Medication: Fentanyl Amount: 50 mcg Route: I.V. Start: 11:54 AM Stop: 11:54 AM Medication: Versed Amount: 1 mg Route: I.V. Start: 11:57 AM Stop: 11:57 AM Medication: Fentanyl Amount: 50 mcg Route: I.V. Start: 11:58 AM Stop: 11:58 AM Medication: Nitrogylcerin Amount: 200 mcg Route: I.A. Start: 12:00 PM Stop: 12:00 PM Medication: Versed Amount: 1 mg Route: I.V. Start: 12:04 PM Stop: 12:04 PM Medication: Heparin Amount: 6000 units Route: I.V. Start: 12:08 PM Stop: 12:08 PM Medication: Versed Amount: 1 mg Route: I.V. Start: 12:10 PM Stop: 12:10 PM Medication: Versed Amount: 1 mg Route: I.V. Start: 12:11 PM Stop: 12:11 PM Medication: Heparin Amount: 4000 units Route: I.V. Start: 12:17 PM Stop: 12:17 PM Medication: Versed Amount: 1 mg Route: I.V. Start: 12:25 PM Stop: 12:25 PM Medication: Nitrogylcerin Amount: 200 mcg Route: I.A. Start: 12:25 PM Stop: 12:25 PM Medication: Versed Amount: 1 mg Route: I.V. Start: 12:34 PM Stop: 12:34 PM Medication: Plavix Amount: 300 mg Route: P.O. I, the attending physician, have reviewed and verified all procedure medications. Yes, all medications given per verbal order History/Risk Factors Hypertension: Yes Dyslipidemia: No Peripheral Arterial Disease (PAD): No Myocardial Infarction (TN): No Obesity: Yes Renal Disease: No Tobacco Use: Never Prior Interventions PCI: No CABG: No Valve Surgery: No Report Signatures Finalized by Nomi Dolan MD on 10/20/2020 05:32 PM
[2020-10-14 11:01] LABS: Partial Thromboplastin Time 139.5 SECONDS (23.9-36.7)
--- NOTE | 2020-10-14 11:42 | PC.NURSE ---
off unit to qc lab technician via wheelchair.
--- NOTE | 2020-10-14 13:30 | PC.NURSE ---
From Lock Master Received pt from cath. Sleepy from post sedation. Tr Band intact on right wrist. No hematoma, bleeding or swelling. Pt reported of achy pain on the right radial wrist in a scale of 5/10. Radial pulse is palpable +3. Instructed pt on activity restrictions. Pt and verbalizes understanding. VS checked. Neurovascular checked.
[2020-10-14] MEDS: acetaminophen 325 mg Tablet 650 MG PO ×2 (14:29→20:32)
--- NOTE | 2020-10-14 15:00 | PC.NURSE ---
TR band off Removed Tr band. No bleeding or hematoma felt, minimal swelling noted by the distal side of the wrist. Pt stated it is achy and sore to the touch. Mild bruising noted. Applied pressure for 10 mins. Radial pulse is palpable. Hand is warm. Activity restrictions reinforced to pt.
--- NOTE | 2020-10-14 16:47 | PM.PN ---
Subjective Subjective: Interval history: Patient was examined this morning, she did have episode of chest pain overnight, none currently Vitals/I&O/Wt Last Vital Signs Temp 98.7 F 10/14/20 12:40 Pulse 79 10/14/20 15:15 Resp 14 10/14/20 15:15 BP 110/69 10/14/20 15:15 Pulse Ox 95 10/14/20 15:15 10/14/20 10/14/20 10/14/20 06:59 14:59 22:59 Intake Total 0 / 50 0 / 0 Output Total 0 / 0 Balance 0 / 50 0 / 0 Weight last 48 hrs Weight 110.677 kg Weight 112.037 kg Physical Exam Const: COMMON NORMALS: no acute distress and patient oriented x3 HENMT: COMMON NORMALS: normocephalic HEAD & SCALP: normocephalic Neck/C-Spine: COMMON NORMALS: no JVD Resp: COMMON NORMALS: normal respiratory effort, No retractions, No use of accessory muscles and clear to auscultation bilaterally AUSCULTATION: clear to auscultation bilaterally Cardio: COMMON NORMALS: no JVD, regular rate, regular rhythm, S1 normal heart sound present and S2 normal heart sound present RATE: regular rate RHYTHM: regular rhythm HEART SOUNDS: S1 normal heart sound present and S2 normal heart sound present GI: COMMON NORMALS: Normal to inspection, nondistended, normoactive bowel sounds present, Soft to palpation, non-tender, No hepatosplenomegaly present, no masses and no bruits PALPATION: Yes Soft to palpation and Yes No hepatosplenomegaly present Extremity: COMMON NORMALS: capillary refill normal, no clubbing, cyanosis or edema, no calf tenderness and no pedal edema Neuro: COMMON NORMALS: patient oriented x3 Psych: COMMON NORMALS: mental status grossly normal Data : 10/14/20 03:06 10/14/20 03:06 A&P Assessment and plan (1) Chest pain: -Chest pain and shortness of breath with exertion -First troponin 75, 6-hour delta was 15 -BNP 187 -D-dimer 0.33 -No significant leukocytosis -EKG shows ST depressions 2, 3 aVF -No active chest pain Plan: -Admit to cardiac stepdown unit -Aspirin, statin, metoprolol -Start heparin drip -Nitro as needed -Serial troponins, serial EKGs -GI consult -Echocardiogram ordered -We will discuss with cardiology once full work-up is back -Full code -Heparin for DVT prophylaxis Status: Acute Qualifiers: Chest pain type: unspecified Qualified Code(s): R07.9 - Chest pain, unspecified (2) Hypothyroidism: Continue levothyroxine Status: Acute (3) Type 2 diabetes mellitus: Low-dose sliding scale Status: Acute (4) Hypertension: Metoprolol Status: Acute (5) Anemia: -hgb 9, iron low, ferritin low -iron defeciency anemia -start Protonix, Carafate, monitor hemoglobin as she is on aspirin and Plavix -Monitor hemodynamics -We will need an outpatient colonoscopy Status: Acute Attestations Medical Necessity Statement*: Patient requires hospitalization for chest pain, anemia, Coding Level of Care Code Acute Porcelain Enameling Supervisor for [facility] Fwd Diagnoses Chest pain R07.9 Chest pain type: unspecified Hypothyroidism E03.9 Type 2 diabetes mellitus E11.9 Hypertension I10 Anemia D64.9
[2020-10-14] MEDS: ferrous sulfate EC 325 mg Tablet PO (18:27)
[2020-10-14] MEDS: pantoprazole DR 40 mg Tablet PO (18:27)
[2020-10-14] MEDS: sucralfate 1 gm Tablet PO ×2 (18:27→20:32)
--- NOTE | 2020-10-14 18:29 | USCV_ITS ---
Ira Leal Age: 50 Gender: F : 1970 Exam Date: 10/14/2020 06:32 Ordering Phys: Cesar Wilkerson MD Technologist: Minnie Mazariegos Exam Location: [facility] [place] Indication: Chest pain BP: / HR: Rhythm: Sinus Technical Quality: Fair MEASUREMENTS (Male / Female) Normal Values 2D ECHO LV Diastolic Diameter PLAX 4.9 cm 4.2 - 5.9 / 3.9 - 5.3 cm LV Systolic Diameter PLAX 3.5 cm LV Chamber Size 4.5 cm IVS Diastolic Thickness 0.8 cm 0.6 - 1.0 / 0.6 - 0.9 cm IVS Systolic Thickness 1.3 cm LVPW Diastolic Thickness 0.9 cm 0.6 - 1.0 / 0.6 - 0.9 cm LVPW Systolic Thickness 1.1 cm RV Chamber Size 2.3 cm LVOT Diameter 2.0 cm LV Ejection Fraction 2D Teich 52.7 % LV Ejection Fraction MOD 2C 57.2 % LV Ejection Fraction 2C AL 56.6 % LA Diameter 3.1 cm LA Width 3.0 cm LA Height 4.6 cm RA Width 2.9 cm RA Height 4.9 cm Aorta at Sinotubular Diameter 3.0 cm M-MODE LV Diastolic Diameter MM 4.9 cm 4.2 - 5.9 / 3.9 - 5.3 cm LV Systolic Diameter MM 3.1 cm LV Ejection Fraction MM Teich 64.7 % IVS Diastolic Thickness MM 1.2 cm 0.6 - 1.0 / 0.6 - 0.9 cm IVS Systolic Thickness MM 1.7 cm LVPW Diastolic Thickness MM 1.2 cm 0.6 - 1.0 / 0.6 - 0.9 cm LVPW Systolic Thickness MM 1.9 cm RV Diastolic Diameter MM 1.4 cm Aortic Annulus Diameter 2.9 cm LA Ao Ratio MM 1.2 MV E Point Septal Separation 0.5 cm DOPPLER AV Peak Velocity 109.0 cm/s LVOT Peak Velocity 93.0 cm/s AV Area Cont Eq vti 2.8 cm squared AV Area Cont Eq pk 2.7 cm squared MV Area PHT 4.0 cm squared Mitral E to A Ratio 1.0 MV E' Velocity 46.5 cm/s Mitral E to MV E' Ratio 7.5 Mitral E to LV E' Lateral Ratio 7.7 Mitral E to LV E' Septal Ratio 7.3 TV Peak E Velocity 47.0 cm/s Right Atrial Pressure 3.0 mmHg PV Peak Velocity 73.0 cm/s RV Acceleration Time 0.1 s RV Ejection Time 0.3 s RV AcT/ET 0.3 FINDINGS Left Ventricle Normal left ventricular size, systolic function and wall thickness. LVEF is 55 to 60%. Regional wall motion abnormalities cannot be assessed because of limited visualization. Normal left ventricular wall thickness. Normal diastolic filling pattern. Right Ventricle The right ventricle is normal in size and function. Right Atrium The right atrium is normal in size. Left Atrium The left atrium is normal in size. Mitral Valve Structurally normal mitral valve without significant stenosis or prolapse. There is no mitral regurgitation. Aortic Valve Not well-visualized. There is no significant aortic stenosis. There is no aortic regurgitation. Tricuspid Valve Grossly normal. Insufficient TR jet to calculate RVSP. Pulmonic Valve Not well-visualized. There is no pulmonic regurgitation. Pericardium Normal pericardium without effusion. Aorta Normal ascending aorta dimension. CONCLUSIONS This is technically difficult study. LV systolic function is normal with EF of 55 to 60%. Regional wall motion abnormalities cannot be assessed because of limited visualization. Diastolic function is normal. Valvular structures are not very well visualized however no gross abnormalities. Comparison studies are available. Nomi Dolan MD (Electronically Signed) Final Date: 14 October 2020 16:36 S
--- NOTE | 2020-10-14 19:30 | PC.NURSE ---
Received report from BROCK Bardales. Patient resting in bed watching tv. Patient s/p C with right radial access. Patient has dressing in place which is c,d,i. Patient c/o joint pain has ice in place to assist with this pain. No s/s of bleeding or hematoma formation observed.
[2020-10-14] MEDS: atorvastatin 40 mg Tablet PO (20:32)
[2020-10-15 00:31] VITALS: PULSE 84; O2SAT 93
[2020-10-15 03:54] VITALS: BP 129/82; PULSE 60; RESP 16; TEMP 36.6; O2SAT 97
[2020-10-15 04:43] LABS: Basophils # 0.1 10^3/uL (0.0-0.1); Basophils % 0.9 %; Eosinophils # 0.2 10^3/uL (0.0-0.8); Eosinophils % 2.1 %; Hematocrit 32.9 % (37.0-47.0); Hemoglobin 9.5 g/dL (11.5-15.3); Lymphocytes # 2.2 10^3/uL (0.8-4.8); Lymphocytes % 27.9 %; Mean Corpuscular HGB Conc 28.9 g/dL (30.0-36.0); Mean Corpuscular Hemoglobin 22.2 pg (28.0-34.0); Mean Platelet Volume 11.9 fL (7.4-10.4); Monocytes # 0.8 10^3/uL (0.2-0.9); Monocytes % 10.4 %; Neutrophils # 4.63 10^3/uL (1.8-7.7); Neutrophils % 58.4 %; Nucleated Red Blood Cells % 0 %; Platelet Count 355 10^3/cmm (130-400); Red Blood Count 4.27 10^6/uL (4.1-5.3); Red Cell Distribution Width 18.6 % (12.1-15.1); White Blood Count 7.9 10^3/uL (4.0-10.0)
[2020-10-15 05:06] LABS: Alanine Aminotransferase 12 U/L (0-33); Albumin Level 3.7 g/dL (3.5-5.2); Alkaline Phosphatase 88 IU/L (35-105); Anion Gap 11.8 (5-19); Aspartate Amino Transferase 13 U/L (0-32); Blood Urea Nitrogen 13 mg/dL (6-20); Calcium 8.5 mg/dL (8.5-10.5); Carbon Dioxide 27 mmol/L (22-29); Chloride 102 mmol/L (98-107); Globulin 3.4 g/dL (1.3-4.6); Glomerular Filtration Rate 75.9 mL/min (90-130); Glucose 142 mg/dL (65-115); Magnesium 1.9 mg/dL (1.7-2.3); Osmolality Calculated 287 mOsm/kg (285-295); Phosphorus 3.4 mg/dL (2.5-4.5); Potassium 3.8 mmol/L (3.5-5.1); Sodium 137 mmol/L (136-145); Total Bilirubin 0.3 mg/dL (0.15-1.2); Total Protein 7.1 g/dL (6.6-8.7)
[2020-10-15] MEDS: metoprolol succinate ER (24 HR) 50 mg Tablet PO (06:07)
[2020-10-15] MEDS: sucralfate 1 gm Tablet PO ×2 (06:07→12:59)
[2020-10-15] MEDS: levothyroxine 150 mcg Tablet PO (06:07)
[2020-10-15 08:11] VITALS: BP 140/78; PULSE 71; RESP 18; TEMP 36.4; O2SAT 98
[2020-10-15] MEDS: clopidogrel 75 mg Tablet PO (08:50)
[2020-10-15] MEDS: pantoprazole DR 40 mg Tablet PO (08:50)
[2020-10-15] MEDS: aspirin 81 mg EC Tablet PO (08:50)
[2020-10-15] MEDS: ferrous sulfate EC 325 mg Tablet PO (08:50)
--- NOTE | 2020-10-15 09:24 | PC.NURSE ---
Right wrist has mild swelling distal to puncture area. Mild bruising noted. Pt reported of achy pain but she verbalizes it is getting better than yesterday. Radial pulse palpable. Activity restrictions to right arm reinforced to pt.
--- NOTE | 2020-10-15 10:08 | PM.PN ---
Subjective Subjective: Interval history: Patient underwent PCI of proximal to mid LAD with drug-eluting stent x1 yesterday. Patient is doing well. Denies any complaints of chest pain, shortness of breath or palpitations. Has mild discomfort in the right radial access site. LVEF is normal on echocardiogram Vitals/I&O/Wt Last Vital Signs Temp 97.5 F L 10/15/20 08:11 Pulse 71 10/15/20 08:11 Resp 18 10/15/20 08:11 BP 140/78 10/15/20 08:11 Pulse Ox 98 10/15/20 08:11 10/14/20 10/15/20 10/15/20 22:59 06:59 14:59 Intake Total 720 / 720 240 / 960 240 / 240 Balance 720 / 720 240 / 960 240 / 240 Weight last 48 hrs Weight 244 lb Weight 247 lb Physical Exam Narrative: EXAM NARRATIVE: GENERAL: Patient is alert, awake and oriented x3. [] NECK: No jugular vein distension. [] HEENT: No cyanosis. No icterus. No pallor. [] HEART: Regular S1 and S2. No murmur, rub or gallop. [] LUNGS: Clear to auscultate bilaterally. [] ABDOMEN: Soft, nontender and nondistended. Positive bowel sounds. No guarding, rebound or tenderness. [] CENTRAL NERVOUS SYSTEM: Grossly nonfocal. [] EXTREMITIES: Lower extremities with no edema bilaterally. Pulses palpable in the lower extremities, both dorsalis pedis and posterior tibial. [] Data : 10/15/20 03:29 10/15/20 03:29 A&P Assessment and plan (1) NSTEMI (non-ST elevated myocardial infarction): Status: Acute (2) Type 2 diabetes mellitus: Status: Acute (3) Hypertension: Status: Acute (4) Hypothyroidism: Status: Acute Patient is status post PCI of proximal to mid LAD continue aspirin and Plavix for at least 1 year. High intensity statin therapy.Continue metoprolol. Can add Lisinopril 5 mg Daily Echo demonstrated EF is normal. Patient is stable to be discharged from cardiology standpoint. Follow up with cardiology office Attestations Medical Necessity Statement*: Care expected to cross 2 midnights. Coding Level of Care Code Acute Fish House Worker for Demetrio Valentine Diagnoses NSTEMI (non-ST elevated myocardial infarction) I21.4 Type 2 diabetes mellitus E11.9 Hypertension I10 Hypothyroidism E03.9
--- NOTE | 2020-10-15 11:21 | PM.DCS ---
Discharge Providers Date of Admission: 10/13/20 16:07 Date of Discharge: October 15, 2020 Attending Provider at Admission: Cesar Wilkerson MD Attending Provider at Discharge: Cesar Wilkerson MD Primary Care Provider: Alondra Aden APN Diagnoses at Discharge Discharge Diagnosis (1) NSTEMI (non-ST elevated myocardial infarction): Status: Acute (2) Type 2 diabetes mellitus: Status: Acute (3) Hypertension: Status: Acute (4) Hypothyroidism: Status: Acute Reason for Visit Reason for Visit: chest pain Hospital Course Hospital Course This is a 50-year-old female with a past medical history of hypertension, hyperlipidemia, hypothyroidism, who presents to [facility] for complaints of chest pain Patient was admitted to [facility] for NSTEMI and chest pain, cardiology was consulted, patient had a cardiac catheterization with stent placed to LAD, tolerated procedure well, chest pain-free. Patient will be discharged on aspirin, statin, beta-jewel, Plavix, with close follow-up cardiology as outpatient For her diabetes, she should follow-up with her primary care provider for consideration of GLP-1 analogs to decrease cardiovascular risk Patient was also found to be anemic during hospitalization, hemoglobin as low as 9.5, no overt signs of bleeding, with iron deficiency. I will discharge the patient on iron replacement therapy. In addition Protonix and Carafate. Patient should follow-up with general surgery for consideration of EGD and colonoscopy. Patient was advised that if she were to have bloody or black stools come to the emergency room. Repeat hemoglobin in 1 week. Physical Exam Const: COMMON NORMALS: no acute distress and patient oriented x3 HENMT: COMMON NORMALS: normocephalic HEAD & SCALP: normocephalic Neck/C-Spine: COMMON NORMALS: no JVD Resp: COMMON NORMALS: normal respiratory effort, No retractions, No use of accessory muscles and clear to auscultation bilaterally AUSCULTATION: clear to auscultation bilaterally Cardio: COMMON NORMALS: no JVD, regular rate, regular rhythm, S1 normal heart sound present and S2 normal heart sound present RATE: regular rate RHYTHM: regular rhythm HEART SOUNDS: S1 normal heart sound present and S2 normal heart sound present GI: COMMON NORMALS: Normal to inspection, nondistended, normoactive bowel sounds present, Soft to palpation, non-tender, No hepatosplenomegaly present, no masses and no bruits PALPATION: Yes Soft to palpation and Yes No hepatosplenomegaly present Extremity: COMMON NORMALS: capillary refill normal, no clubbing, cyanosis or edema, no calf tenderness and no pedal edema Neuro: COMMON NORMALS: patient oriented x3 Psych: COMMON NORMALS: mental status grossly normal Discharge Data Data Completed and Pending: Completed Studies During Hospitalization Category Date Time Status XR chest 1V katy ble [id number] Stat Exams 10/13/20 14:03 Completed CV echo complete* [id number] Routine Ultrasound 10/14/20 18:29 Completed Pending at discharge Category Date Time Status THERAPEUTIC STRATEGY LEAD request for service Routin e Exams 10/14/20 10:30 Ordered Complete Blood Co unt w/Auto AM LABS Lab 10/16/20 04:00 Ordered Comprehensive Met abolic Panel AM LA BS Lab 10/16/20 04:00 Ordered Immunochemical Fe julianna OCB Routine Lab 10/14/20 07:52 Uncollected Magnesium AM LABS Lab 10/16/20 04:00 Ordered Phosphorus AM LAB S Lab 10/16/20 04:00 Ordered Labs from last 24 hours 10/15/20 10/15/20 10/14/20 03:29 03:29 14:36 WBC 7.9 RBC 4.27 Hgb 9.5 L Hct 32.9 L MCV 77.0 L MCH 22.2 L MCHC 28.9 L RDW 18.6 H Plt Count 355 MPV 11.9 H Neut % (Auto) 58.4 Lymph % (Auto) 27.9 [place] % (Auto) 10.4 Eos % (Auto) 2.1 Baso % (Auto) 0.9 Neut # (Auto) 4.63 Lymph # (Auto) 2.2 [place] # (Auto) 0.8 Eos # (Auto) 0.2 Baso # (Auto) 0.1 Nucleated RBC % (a uto) 0 Nucleated RBCs # 0.0 APTT 128.0 H Sodium 137 Potassium 3.8 Chloride 102 Carbon Dioxide 27 Anion Gap 11.8 BUN 13 Creatinine 0.8 GFR Calculation 75.9 L Glucose 142 H Calculated Osmolal ity 287 Calcium 8.5 Phosphorus 3.4 Magnesium 1.9 Total Bilirubin 0.3 AST 13 ALT 12 Alkaline Phosphata se 88 Total Protein 7.1 Albumin 3.7 Globulin 3.4 Vitals: Last Vital Signs Temp 97.5 F L 10/15/20 08:11 Pulse 71 10/15/20 08:11 Resp 18 10/15/20 08:11 BP 140/78 10/15/20 08:11 Pulse Ox 98 10/15/20 08:11 Discharge Plan Discharge Patient Disposition: Home Condition: Stable Prescriptions: New atorvastatin 40 mg Tablet 40 mg PO BEDTIME 30 Days Qty: 30 RF: 0 pantoprazole 40 mg Tablet,Delayed Release (Dr/Ec) 40 mg PO BID 30 Days Qty: 60 RF: 0 aspirin 81 mg Tablet,Delayed Release (Dr/Ec) 81 mg PO DAILY 30 Days Qty: 30 RF: 0 clopidogrel 75 mg Tablet 75 mg PO DAILY 30 Days Qty: 30 RF: 0 sucralfate 1 gram Tablet 1 g PO AC&BEDTIME 30 Days Qty: 60 RF: 0 ferrous sulfate 325 mg (65 mg iron) Tablet,Delayed Release (Dr/Ec) 325 mg PO BIDWM 30 Days Qty: 30 RF: 0 Continued Tylenol 325 mg Tablet 325 mg PO QID PRN (Reason: Pain) RF: 0 metoprolol succinate 50 mg tablet extended release 24 hr 50 mg PO BID@0700,2100 RF: 0 Synthroid 150 mcg tablet 150 mcg PO DAILY@0700 RF: 0 metformin 500 mg tablet extended release 24 hr 500 mg PO DAILY@0700 RF: 0 Mucinex 600 mg Tablet Extended Release 12hr 600 mg PO Q12H PRN (Reason: Cold Symptoms) RF: 0 Other Ambulatory Orders: Complete Blood Count w/Auto (Routine) Timeframe: 1 Week Location: Determined by Patient Ordered By: Cesar Wilkerson Referrals: Alondra Aden APN [Primary Care Provider] - Cj Pierre MD [Physician] - 1 month (needs colonoscopy) Discharge Diet: Usual diet Discharge Activity: Resume usual activity Patient Instructions: Coronary Intravascular Stent Placement (DC), Diabetes Mellitus Type 2 in Adults (GEN), Weight Management (GEN), DASH Eating Plan (DC), Obesity and Weight Control Activity Restrictions/Additional Instructions: -If you have recurrent chest pain please go to the emergency room immediately -Monitor for bloody or black stool as you are on aspirin and Plavix -Please follow-up with cardiology as scheduled - Please follow-up please follow-up with general surgery Discharge Attestations Time Spent in Discharge Care*: less than 30 min Quality Metrics Clinical Quality Measures During this hospital stay, did patient experience: None Coding Level of Care Code Acute Diesel Service Technician for Chg Fwd Diagnoses NSTEMI (non-ST elevated myocardial infarction) I21.4 Type 2 diabetes mellitus E11.9 Hypertension I10 Hypothyroidism E03.9
[2020-10-15 12:23] VITALS: BP 151/100; PULSE 73; RESP 18; TEMP 37.1; O2SAT 98
--- NOTE | 2020-10-15 15:16 | PC.NURSE ---
Discharge to home Instructed pt to follow-up with her pcp, bilingual speech therapist and set-up an appointment for colonoscopy. Educated pt on her new meds dosing, timing, actions and duration. Instructed pt to take her protonix and carafate 2-4 hours after taking her Plavix. Pt teaches back and verbalizes understanding. Educated pt on post angiogram home care instructions regarding activity restrictions on her right arm for about 2-3 days, signs and symptoms of hematoma and what to expect post procedure and wound care. Pt verbalizes understanding and teaches back. Discharge packet provided to pt.
== END 2020-10-15 15:16 | disposition home or self-care (01) ==
LOC: ER 16:23 → CSU 17:47
PROVIDERS: Internal Medicine; Admitting Provider Family Medicine; Emergency Provider Family Medicine; PCP Nurse Practitioner; Visit Provider Family Medicine
DX: I21.4 Non-ST elevation (NSTEMI) myocardial infarction (principal); E03.9 Hypothyroidism, unspecified; E11.9 Type 2 diabetes mellitus without complications; I10 Essential (primary) hypertension; Z79.84 Long term (current) use of oral hypoglycemic drugs; D64.9 Anemia, unspecified
CPT/HCPCS: 12345; 36415; 71045; 80053; 81003; 82607; 82728; 82746; 83036; 83540; 83735; 83880; 84100; 84443; 84484; 85025; 85347; 85378; 85651; 85730; 86140; 93005; 93306; 93452; 94664; 96372; 96374; 99283; 99285; C1725; C1769; C1874; C1887; C1894; C9600; G0378; J1644; J1650; J2250; J3010; J3490; J7030; Q9967

== ENCOUNTER 2020-10-19 06:55 | Outpatient (CLI) | payer BC, SELFPAY ==
--- NOTE | 2020-10-19 | USCV_ITS ---
Ira Leal Age: 50 Gender: F : 1970 Exam Date: 10/19/2020 07:24 Ordering Phys: Leticia Skaggs Technologist: Mary Browning Exam Location: [facility] [place] Indication: s/p angio 10/14/20, pain in right arm Risk Factors: Previous Vascular Surgery: Right BP: 160.00 / Left BP: / RIGHT LEFT PSV PSV (cm/s) (cm/s) Waveform Waveform Triphasic 119.5 Subclavian Proximal Triphasic 85.8 Subclavian Distal Triphasic 92.7 Axillary Triphasic 90.6 Brachial Proximal Triphasic 100.0 Brachial Mid Triphasic 90.6 Brachial at AC Triphasic 58.7 Radial Proximal Triphasic 55.0 Radial Mid Triphasic 50.2 Radial at Wrist Triphasic 56.6 Ulnar Proximal Triphasic 57.1 Ulnar Mid Triphasic 47.5 Ulnar at Wrist 0.8 Radial/Brachial Index 0.9 Ulnar/Brachial Index FINDINGS Right BP Radial= 120 Right BP Ulnar= 150 Multiple arterial Doppler waveforms in the right upper extremity arteries Normal RBI and UBI CONCLUSIONS No significant arterial obstruction in the above-mentioned vessels on the right side Dr Jacob Madrigal MD [facility] (Electronically Signed) Final Date: 23 October 2020 09:51 S
== END 2020-10-19 06:56 | disposition home or self-care (01) ==
LOC: RAD 06:58
PROVIDERS: PCP Nurse Practitioner; Visit Provider Nurse Practitioner Family
DX: R07.9 Chest pain, unspecified (principal); M79.601 Pain in right arm
CPT/HCPCS: 93931

== ENCOUNTER → 2020-10-23 14:20 | Outpatient (BNVA) | payer BC, SELFPAY | PROVIDERS: PCP Nurse Practitioner; Visit Provider Nurse Practitioner Family | DX: I25.119 Atherosclerotic heart disease of native coronary artery with unspecified angina pectoris (principal) | CPT/HCPCS: 80048 ==

== ENCOUNTER → 2020-12-08 06:50 | Day surgery (SDC) | payer BC, SELFPAY ==
[2020-12-08] VITALS (7 sets, daily range): BP systolic 118–153; BP diastolic 74–86; PULSE 78–113; RESP 18–20; TEMP 36.2–36.9; O2SAT 99–100; BMI 40.1
[2020-12-08 07:59] LABS: Basophils # 0.1 10^3/uL (0.0-0.1); Basophils % 0.9 %; Eosinophils # 0.2 10^3/uL (0.0-0.8); Eosinophils % 1.9 %; Hematocrit 26.9 % (37.0-47.0); Hemoglobin 7.9 g/dL (11.5-15.3); Lymphocytes # 1.6 10^3/uL (0.8-4.8); Lymphocytes % 20.2 %; Mean Corpuscular HGB Conc 29.4 g/dL (30.0-36.0); Mean Corpuscular Hemoglobin 24.8 pg (28.0-34.0); Mean Corpuscular Volume 84.3 fL (81-99); Mean Platelet Volume 11.7 fL (7.4-10.4); Monocytes # 0.7 10^3/uL (0.2-0.9); Monocytes % 8.9 %; Neutrophils # 5.45 10^3/uL (1.8-7.7); Neutrophils % 67.7 %; Nucleated Red Blood Cells % 0 %; Platelet Count 387 10^3/cmm (130-400); Red Blood Count 3.19 10^6/uL (4.1-5.3); Red Cell Distribution Width 19.9 % (12.1-15.1); White Blood Count 8.1 10^3/uL (4.0-10.0)
[2020-12-08] MEDS: diphenhydrAMINE 25 mg Capsule PO (09:31)
--- NOTE | 2020-12-08 09:50 | PC.NURSE ---
0945 pt transfusion started at 50mL/hr vital signs are stable SC 86 Temp 97.6 RR 18 BP 137/79, lungs sounds clear upon auscultation
--- NOTE | 2020-12-08 10:05 | PC.NURSE ---
1000 pt VS stable KS 78, Temp 97.4, RR 18, BP 126/74, rate of infusion increased to 150mL/hr, pt states feeling fine, lungs clear on auscultation
--- NOTE | 2020-12-08 12:16 | PC.NURSE ---
GOT BLOOD FROM LAB, BUT WHEN I TOOK IT TO PTS ROOM AND SHE SAW THAT IT WAS O POS AND SHE IS O NEG, SHE AND HER WERE VERY SKEPTICAL ABOUT GETTING THE O POS BLOOD. I CALLED LAB AND THEY SAID THEY APPROVED IT WITH THE PATHOLOGIST AND THEY ORDERING PHYSICIAN, DR Flory FINCH. PT STILL WAS TOO SCARED TO TAKE THE BLOOD. I RETURNED IT TO BLOOD BANK AND LET THE PT KNOW I WOULD GET AHOLD OF THE DR. RANDI Smith RN CALLED DR Juan Manuel FINCH AND SHE SAID FOR THE PATIENT TO GET A CBC WITHIN THE NEXT WEEK AND SHE DIDN'T HAVE TO GET THE SECOND UNIT.
[2020-12-08] MEDS: FUROsemide 10 mg/mL SDV 2mL 20 MG IVP (12:28)
== END | disposition home or self-care (01) ==
PROVIDERS: PCP Family Medicine; Visit Provider Family Medicine
DX: D64.9 Anemia, unspecified (principal)
CPT/HCPCS: 36415; 36430; 85025; 86850; 86900; 86920; 96374; J1940; P9016

== ENCOUNTER → 2020-12-25 10:20 | Outpatient (BNVA) | payer BC, SELFPAY | PROVIDERS: PCP Family Medicine; Visit Provider Obstetrics & Gynecology | DX: Z12.4 Encounter for screening for malignant neoplasm of cervix (principal) | CPT/HCPCS: 88175 ==

== ENCOUNTER → 2021-01-05 13:00 | Outpatient (BNVA) | payer BC, SELFPAY | PROVIDERS: PCP Family Medicine; Visit Provider Obstetrics & Gynecology | DX: N83.01 Follicular cyst of right ovary (principal) | CPT/HCPCS: 76830 ==

== ENCOUNTER 2021-01-09 21:07 | Emergency (ER) | payer BC, SELFPAY ==
[2021-01-09 21:18] VITALS: BP 133/80; PULSE 88; RESP 18; TEMP 37.1; O2SAT 100; BMI 39.4
--- NOTE | 2021-01-09 21:31 | US_ITS ---
WS: [id number] TRANSABDOMINAL PELVIC ULTRASOUND HISTORY: vaginal bleeding on plavix COMPARISON: 01/05/2021 Uterus: 8.5 cm x 5.7 cm x 4.7 cm. Anteverted uterus is normal size. Limited without distended urinary bladder. Endometrium: 0.7 cm. Partially visualized and normal. Right ovary: 3.6 cm x 2.6 cm x 2.1 cm; no solid or cystic mass. Small follicle or cyst associated wit h the ovary measures 2.2 x 2.7 cm. Left ovary: Not identified. No adnexal mass. No free fluid in the cul-de-sac. US/US pelvic complete* [id number] IMPRESSION: 1. Limited evaluation of the pelvis without endovaginal imaging. Due to the si gnificant amount of menorrhagia transvaginal imaging was not possible. 2. Small portion of the endometrium is visualized and normal.
[2021-01-09 21:35] VITALS: BP 139/95; PULSE 90; RESP 18; O2SAT 100
[2021-01-09] MEDS: sodium chloride 0.9% 1,000 ML 999 ML IV (21:50)
[2021-01-09 21:53] LABS: Basophils # 0.1 10^3/uL (0.0-0.1); Basophils % 0.6 %; Eosinophils # 0.1 10^3/uL (0.0-0.8); Eosinophils % 0.9 %; Hematocrit 31.5 % (37.0-47.0); Hemoglobin 9.4 g/dL (11.5-15.3); Lymphocytes # 1.5 10^3/uL (0.8-4.8); Lymphocytes % 14.3 %; Mean Corpuscular HGB Conc 29.8 g/dL (30.0-36.0); Mean Corpuscular Hemoglobin 25.6 pg (28.0-34.0); Mean Corpuscular Volume 85.8 fL (81-99); Mean Platelet Volume 12.7 fL (7.4-10.4); Monocytes # 0.9 10^3/uL (0.2-0.9); Monocytes % 8.6 %; Neutrophils # 7.67 10^3/uL (1.8-7.7); Neutrophils % 75.3 %; Nucleated Red Blood Cells % 0 %; Platelet Count 389 10^3/cmm (130-400); Red Blood Count 3.67 10^6/uL (4.1-5.3); Red Cell Distribution Width 17.6 % (12.1-15.1); White Blood Count 10.2 10^3/uL (4.0-10.0)
[2021-01-09 22:11] LABS: Alanine Aminotransferase 12 U/L (0-33); Albumin Level 3.6 g/dL (3.5-5.2); Alkaline Phosphatase 87 IU/L (35-105); Aspartate Amino Transferase 17 U/L (0-32); Blood Urea Nitrogen 19 mg/dL (6-20); Calcium 8.2 mg/dL (8.5-10.5); Carbon Dioxide 25 mmol/L (22-29); Chloride 100 mmol/L (98-107); Globulin 3.7 g/dL (1.3-4.6); Glomerular Filtration Rate 66.3 mL/min (90-130); Glucose 179 mg/dL (65-115); Osmolality Calculated 285 mOsm/kg (285-295); Sodium 134 mmol/L (136-145); Total Bilirubin 0.3 mg/dL (0.15-1.2); Total Protein 7.3 g/dL (6.6-8.7); Troponin(5th) Baseline 6 ng/L (0-10)
--- NOTE | 2021-01-09 22:12 | W.ED.FEMALGU ---
HPI - Female Genitourinary General: Chief complaint: Vaginal Bleeding Stated complaint: extreme genital bleeding Time Seen by Provider: 01/09/21 21:33 History of Present Illness: HPI Narrative: The patient is a 50-year-old female who comes to the ER complaining of extreme vaginal bleeding and an episode of syncope. She says she passed out around 8 PM for up to a minute to a minute and a half. This was witnessed by her . She had an AR in September and had been placed on aspirin and Plavix which has increased her heavy menstruations. She even required a transfusion in November. She says she is currently 2 days into her menstrual period and has heavy flow requiring her to change the overnight pads she is using every hour or more frequently than that. She has a plan to get through this. And then follow-up with OB for an IUD placement. MD elicited complaint: vaginal bleeding Severity: moderate Quality of pain: cramping Consistency: constant Vaginal bleeding: heavy and clots Exacerbating factors: menstrual period Relieving factors: none Associated symptoms: Reports syncope; Deny abdominal pain or headache(s) Treatment prior to arrival: none Review of Systems General: Reports: 10 or more systems reviewed and unremarkable except in HPI and below Const: Denies: fatigue Eyes: Denies: change in vision, blurry vision or eye redness ENMT: Denies: throat pain, swelling of lips/tongue, ear or mastoid pain or nasal congestion Card: Reports: syncope Resp: Denies: dyspnea, productive cough or non-productive cough GI: Denies: abdominal pain, diarrhea or GI cramping : Reports: vaginal bleeding; Denies: flank pain, difficulty voiding, urinary frequency or urinary urgency Musc: Denies: neck pain, back pain, extremity pain, joint pain, joint redness, limited range of motion or muscle weakness Skin/Breast: Denies: rash, pruritus, erythema, skin pain or skin tenderness Neuro: Denies: headache(s), numbness in extremities, weakness in extremities, sensory changes, difficulty walking, dizziness, confusion or Slurred speech present Psych: Denies: anxiety or depression Endo: Denies: polyuria All/Imm: Denies: urticaria, throat swelling or tongue swelling PFS ED PFSH: Medical History (Updated 01/09/21 @ 22:56 by David Bonilla MD) Coronary artery disease AR in 09/2020 with LAD stent placed Hyperlipidemia Hypertension Hypothyroidism Polycystic ovarian syndrome Type 2 diabetes mellitus Surgical History (Updated 12/29/20 @ 18:26 by Mendoza Nicolas MD) History of S/P coronary artery stent placement (09/2020) Had LAD stent placed. Family History Mother Rheumatoid arthritis Leukemia Father Type 1 diabetes mellitus Social History (Updated 12/29/20 @ 18:27 by Mendoza Nicolas MD) Smoking and tobacco status: never smoked Alcohol intake: never Physical Exam Const: COMMON NORMALS: no acute distress, average body habitus, patient oriented x3, no limitations, healthy appearing, alert and well nourished GENERAL APPEARANCE: cooperative, comfortable, well kempt and well developed ORIENTATION/CONSCIOUSNESS: Yes awake, Yes oriented to person, Yes oriented to place and Yes oriented to time HENMT: COMMON NORMALS: normocephalic, external ears normal and Normal external nose present HEAD & SCALP: normal to inspection and normocephalic NOSE: Normal external nose present EXTERNAL EAR: Yes external ears normal MOUTH: Normal oral and palatal mucosa present THROAT: posterior oropharynx normal Eye: COMMON NORMALS: Equal, round and reactive pupils present and EOMs intact bilaterally GENERAL EYE: appearance normal, both eyes and all related structures PUPIL: Yes Equal, round and reactive pupils present Neck/C-Spine: COMMON NORMALS: full ROM, no lymphadenopathy, no meningeal signs and no JVD GENERAL: Yes normal visual inspection Lymph: LYMPHATIC: no lymphadenopathy noted Chest: COMMONS NORMALS: normal inspection of the chest and normal palpation of entire chest wall Resp: COMMON NORMALS: normal respiratory effort, No retractions, No use of accessory muscles, clear to auscultation bilaterally and percussion normal EFFORT & INSPECTION: Yes able to speak in complete sentences AUSCULTATION: clear to auscultation bilaterally PERCUSSION: percussion normal Cardio: COMMON NORMALS: no JVD, regular rate, regular rhythm, S1 normal heart sound present, S2 normal heart sound present and Peripheral pulses 2+ throughout RATE: regular rate RHYTHM: regular rhythm HEART SOUNDS: S1 normal heart sound present and S2 normal heart sound present PERIPHERAL PULSES: Peripheral pulses 2+ throughout GI: COMMON NORMALS: Normal to inspection, nondistended, normoactive bowel sounds present, Soft to palpation, non-tender and no masses INSPECTION: Yes normal to inspection PALPATION: Yes Soft to palpation : COMMON NORMALS: Yes no CVA tenderness BLADDER/KIDNEY EXAM: Yes no CVA tenderness Back/Pelvis: COMMON NORMALS: no CVA tenderness, thoracic and lumbar spine normal to inspection, no thoracic nor lumbar tenderness and thoraco-lumbar ROM normal Extremity: COMMON NORMALS: normal to inspection, full ROM, capillary refill normal, no joint enlargement and no pedal edema GENERAL: Yes normal exam except as noted Neuro: COMMON NORMALS: patient oriented x3, CN's II-XII intact bilaterally, moves all extremities, no focal motor deficits, no sensory deficits noted and gait normal SENSORIUM/ORIENTATION: Yes alert, Yes oriented to person, Yes oriented to place and Yes oriented to time MENINGEAL SIGNS: Yes no meningeal signs Psych: COMMON NORMALS: mental status grossly normal, Normal thought process present, cooperative, normal affect and speech normal APPEARANCE: Yes well kempt ATTITUDE: Yes calm SPEECH: Yes normal speech THOUGHT PROCESS: Normal thought process present Skin: COMMON NORMALS: no rashes or lesions noted GENERAL SKIN EXAM: no rashes or lesions noted Course Vital Signs: Vital signs: Vital Signs Temperature 98.8 F 01/09/21 21:18 Pulse Rate 90 01/09/21 21:35 Respiratory Rate 18 01/09/21 21:35 Blood Pressure 139/95 01/09/21 21:35 Pulse Oximetry 100 01/09/21 21:35 MDM - Female MDM Narrative: Medical decision making narrative: Patient has significant vaginal bleeding. Ultrasound is normal. This is likely from the aspirin and Plavix she is taking that she cannot stop taking. Hemoglobin 9.4 and not needing a transfusion at this point. She was given a liter of IV fluids which improved her symptoms and discussed with Dr. Nicolas who recommended discharge and follow-up with him for an IUD placement after her menstrual period finishes. I recommended she return to the ER at anytime with worsening symptoms for reevaluation, fluids, and transfusion if needed. She understands and will follow the plan Lab Data: Labs: Lab Results 01/09/21 01/09/21 01/09/21 Range/Units 21:44 21:44 21:44 WBC 10.2 H (4.0-10.0) 10^3/ uL RBC 3.67 L (4.1-5.3) 10^6/u L Hgb 9.4 L (11.5-15.3) g/dL Hct 31.5 L (37.0-47.0) % MCV 85.8 (81-99) fL MCH 25.6 L (28.0-34.0) pg MCHC 29.8 L (30.0-36.0) g/dL RDW 17.6 H (12.1-15.1) % Plt Count 389 (130-400) 10^3/c mm MPV 12.7 H (7.4-10.4) fL Neut % (Auto) 75.3 % Lymph % (Auto) 14.3 % [place] % (Auto) 8.6 % Eos % (Auto) 0.9 % Baso % (Auto) 0.6 % Neut # (Auto) 7.67 (1.8-7.7) 10^3/u L Lymph # (Auto) 1.5 (0.8-4.8) 10^3/u L [place] # (Auto) 0.9 (0.2-0.9) 10^3/u L Eos # (Auto) 0.1 (0.0-0.8) 10^3/u L Baso # (Auto) 0.1 (0.0-0.1) 10^3/u L Nucleated RBC % (a uto) 0 % Nucleated RBCs # 0.0 /100WBC Sodium 134 L (136-145) mmol/L Potassium 4.0 (3.5-5.1) mmol/L Chloride 100 (98-107) mmol/L Carbon Dioxide 25 (22-29) mmol/L Anion Gap 13.0 (5-19) BUN 19 (6-20) mg/dL Creatinine 0.9 (0.5-0.9) mg/dL GFR Calculation 66.3 L (90-130) mL/min Glucose 179 H (65-115) mg/dL Calculated Osmolal ity 285 (285-295) mOsm/k g Calcium 8.2 L (8.5-10.5) mg/dL Total Bilirubin 0.3 (0.15-1.2) mg/dL AST 17 (0-32) U/L ALT 12 (0-33) U/L Alkaline Phosphata se 87 (35-105) IU/L Troponin T Baselin e 6 (0-10) ng/L Total Protein 7.3 (6.6-8.7) g/dL Albumin 3.6 (3.5-5.2) g/dL Globulin 3.7 (1.3-4.6) g/dL Discharge Plan Discharge Patient Disposition: Home Clinical Impression: Vaginal bleeding, Syncope Condition: Stable Prescriptions: No Action aspirin [Adult Low Dose Aspirin] 81 mg tablet,delayed release (DR/EC) 81 mg PO DAILY Qty: 90 RF: 3 docusate sodium [Stool Softener] 100 mg capsule 100 mg PO DAILY RF: 0 atorvastatin 40 mg tablet 40 mg PO DAILY Qty: 90 RF: 2 clopidogrel 75 mg tablet 75 mg PO DAILY Qty: 90 RF: 2 pantoprazole 40 mg tablet,delayed release (DR/EC) 40 mg PO DAILY Qty: 90 RF: 2 lisinopril 5 mg tablet 5 mg PO DAILY Qty: 90 RF: 2 Vitamin B-12 500 mcg Tablet 500 mcg PO DAILY RF: 0 iron 325 mg (65 mg iron) Tablet 325 mg PO BID RF: 0 acetaminophen [Tylenol] 325 mg Tablet 325 mg PO QID PRN (Reason: Pain) RF: 0 metoprolol succinate 50 mg tablet extended release 24 hr 50 mg PO BID@0700,2100 RF: 0 levothyroxine [Synthroid] 150 mcg tablet 150 mcg PO DAILY@0700 RF: 0 metformin 500 mg tablet extended release 24 hr 1,000 mg PO DAILY@0700 RF: 0 Discharge Orders: Discharge ED (Routine); Ordered 01/09/21 Ordered By: David Bonilla Referrals: Martha Medina MD [Primary Care Provider] - Discharge Diet: Advance as tolerated Discharge Activity: Resume usual activity Patient Instructions: Syncope (ED), Bleeding (ED), Opioid Safety Activity Restrictions/Additional Instructions: You likely passed out from dehydration related to the bleeding. Your hemoglobin is 9.4 and you do not need a transfusion at this point. We have given you a liter of IV fluids and you feel somewhat improved. Please go home and rest and continue to change her pads. If your symptoms worsen please return to the ER for further evaluation, fluids, and transfusion if needed. I discussed with Dr. Nicolas the plan of care and he recommends following up with him after this. Finishes for an IUD placement. Coding Level of Care Code ED Corporate Statistical Financial Analyst for Demetrio Valentine Exam Comprehensive
[2021-01-09 23:50] VITALS: BP 108/73; PULSE 67; RESP 18; O2SAT 100
[2021-01-10 00:50] LABS: Add Urine Microscopic? YES; Bilirubin Urine Neg (Negative); Blood Urine 3+ (Negative); Glucose Urine UA Norm (Normal); Ketones Urine Negative (Negative); Leukocyte Esterase Urine 2+ (Negative); Nitrate Urine Negative (Negative); Protein Urine Trace (Negative); Specific Gravity, Urine 1.005 (1.005-1.030); Urine Appearance Clear (CLEAR); Urine Color Red (Yellow); Urobilinogen Urine Norm (Negative); pH Urine 6.5 (5-7)
[2021-01-10 00:52] LABS: Add Urine Culture? No; RBC Urine TOO NUMEROUS TO CNT /hpf (0-2); Squamous Epithelial Cell Urine 0-4 /hpf (0-5)
[2021-01-10 00:53] VITALS: BP 110/79; PULSE 79; RESP 18; TEMP 37.1; O2SAT 99
== END 2021-01-10 00:55 | disposition home or self-care (01) ==
PROVIDERS: Emergency Provider Family Medicine; PCP Family Medicine
DX: N93.9 Abnormal uterine and vaginal bleeding, unspecified (principal); R55 Syncope and collapse; Z79.82 Long term (current) use of aspirin; Z79.02 Long term (current) use of antithrombotics/antiplatelets; I25.10 Atherosclerotic heart disease of native coronary artery without angina pectoris; I25.2 Old myocardial infarction; E78.5 Hyperlipidemia, unspecified; I10 Essential (primary) hypertension; E11.9 Type 2 diabetes mellitus without complications
CPT/HCPCS: 76856; 80053; 81001; 84484; 85025; 86850; 86900; 96360; 96361; 99283; J7040

== ENCOUNTER → 2021-01-25 10:40 | Outpatient (BNVA) | payer BC, SELFPAY | PROVIDERS: PCP Family Medicine; Visit Provider Obstetrics & Gynecology | DX: N93.9 Abnormal uterine and vaginal bleeding, unspecified (principal); N92.0 Excessive and frequent menstruation with regular cycle | CPT/HCPCS: 81025; 88305 ==

== ENCOUNTER 2021-02-11 00:27 | Emergency (ER) | payer BC, SELFPAY ==
[2021-02-11 00:45] VITALS: BP 162/97; PULSE 60; RESP 18; TEMP 36.4; O2SAT 100; BMI 38.2
[2021-02-11 00:49] VITALS: PULSE 62; RESP 14; O2SAT 100
--- NOTE | 2021-02-11 00:49 | ECG_ITS ---
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
--- NOTE | 2021-02-11 00:49 | XRR_ITS ---
PROCEDURE INFORMATION: Exam: XR Chest Exam date and time: 02/11/2021 12:53 AM Age: 50 years old Clinical indication: Chest pain; Type not specified; Additional info: Cp TECHNIQUE: Imaging protocol: XR of the chest. Views: 1 view. COMPARISON: CR XR chest 1V portable [id number] 10/13/2020 2:42 PM FINDINGS: Lungs: The lungs are clear. Pleural spaces: Unremarkable. No pleural effusion. No pneumothorax. Heart/Mediastinum: Unremarkable. No cardiomegaly. Bones/joints: No acute fracture is seen. XR/XR chest 1V portable [id number] IMPRESSION: No acute cardiopulmonary abnormality.
[2021-02-11 00:54] LABS: Basophils # 0.1 10^3/uL (0.0-0.1); Basophils % 0.6 %; Eosinophils % 0.2 %; Hematocrit 35.5 % (37.0-47.0); Hemoglobin 10.6 g/dL (11.5-15.3); Lymphocytes # 0.9 10^3/uL (0.8-4.8); Lymphocytes % 8.6 %; Mean Corpuscular HGB Conc 29.9 g/dL (30.0-36.0); Mean Corpuscular Hemoglobin 26.7 pg (28.0-34.0); Mean Corpuscular Volume 89.4 fL (81-99); Mean Platelet Volume 11.9 fL (7.4-10.4); Monocytes # 0.4 10^3/uL (0.2-0.9); Monocytes % 3.4 %; Neutrophils # 8.97 10^3/uL (1.8-7.7); Nucleated Red Blood Cells % 0 %; Platelet Count 367 10^3/cmm (130-400); Red Blood Count 3.97 10^6/uL (4.1-5.3); Red Cell Distribution Width 17.1 % (12.1-15.1); White Blood Count 10.3 10^3/uL (4.0-10.0)
[2021-02-11 01:11] LABS: Troponin(5th) Baseline 6 ng/L (0-10)
[2021-02-11] MEDS: lidocaine 2% viscous 15 ML, aluminum-mag hydrox-simethicon 30 ML, sucralfate oral liq 1 GM PO (01:12)
[2021-02-11] MEDS: ondansetron 2 mg/ML SDV 2 mL 4 MG IVP (02:32)
--- NOTE | 2021-02-11 02:49 | ECG_ITS ---
[facility] Test Date: 2021-02-11 Pat Name: Ira Leal Department: Room: Gender: Female Oracle Manager: : 1970 Requested By: Billy Hdz Order Number: [id number] Ivette MD: LIZZETTE BRASWELL Measurements Intervals [place] Rate: 51 P: 38 CT: 170 QRS: 27 QRSD: 94 T: 39 QT: 444 QTc: 411 Interpretive Statements SINUS BRADYCARDIA POSSIBLE ANTERIOR MYOCARDIAL INFARCTION , PROBABLY OLD [30 ms Q WAVE IN V3/V4, OR R < 0.2 mV IN V4] Compared to ECG 02/11/2021 00:43:57 Myocardial infarct finding now present Electronically Signed On 02-11-2021 21:16:58 CDT by LIZZETTE BRASWELL [id number]
[2021-02-11 02:51] VITALS: BP 156/79; PULSE 54; RESP 16; O2SAT 100
[2021-02-11 03:00] VITALS: BP 170/84; PULSE 54; RESP 20; O2SAT 100
[2021-02-11 03:07] LABS: Troponin 5 2HR Delta 0 ABS# (0-10)
[2021-02-11 03:15] LABS: Alanine Aminotransferase 11 U/L (0-33); Albumin Level 4.4 g/dL (3.5-5.2); Alkaline Phosphatase 89 IU/L (35-105); Anion Gap 14.1 (5-19); Aspartate Amino Transferase 11 U/L (0-32); Blood Urea Nitrogen 17 mg/dL (6-20); Calcium 8.7 mg/dL (8.5-10.5); Carbon Dioxide 25 mmol/L (22-29); Chloride 102 mmol/L (98-107); Creatinine Clr Calc Pharmacy 107.2069; Globulin 3.2 g/dL (1.3-4.6); Glomerular Filtration Rate 88.6 mL/min (90-130); Glucose 172 mg/dL (65-115); Lipase 35 U/L (13-60); NT Pro B Type Natriuretic Pept 130 pg/mL (0-125); Osmolality Calculated 290 mOsm/kg (285-295); Potassium 4.1 mmol/L (3.5-5.1); Sodium 137 mmol/L (136-145); Total Bilirubin 0.3 mg/dL (0.15-1.2); Total Protein 7.6 g/dL (6.6-8.7)
[2021-02-11 03:44] VITALS: BP 155/79; PULSE 53; RESP 14; O2SAT 100
--- NOTE | 2021-02-11 04:27 | W.ED.CHESTPA ---
HPI - Chest Pain General: Chief Complaint: Chest Pain Stated Complaint: chest pain Time Seen by Provider: 02/11/21 00:43 History of Present Illness: HPI narrative: 50-year-old female with a history of anemia, coronary disease status post stent placement to her LAD in September. She also has a history of gastroesophageal reflux and diabetes. She presents with onset of pain across her mid back that started around 6 PM. She took some Tums without any relief. When the pain did not go away on its own, she came to the emergency department. She notes that she vomited small bits a couple of times. There is no fever, no diarrhea. MD complaint: chest pain Pertinent past history: coronary artery disease and [employer] Onset (ago): hour(s) Timing of current episode: constant Prior episodes: No Onset: during rest Pain location: epigastric and other (mid back) Pain radiation: none Severity: moderate Quality: tightness and aching Relieving factors: nothing Exacerbating factors: nothing Associated symptoms: Reports abdominal pain, dyspnea and nausea; Deny diaphoresis, fever(s), palpitations or syncope Review of Systems Const: Denies: fever(s) or diaphoresis Card: Reports: chest pain; Denies: palpitations or syncope Resp: Reports: dyspnea GI: Reports: abdominal pain and nausea [facility] ED PFSH: Medical History (Updated 02/11/21 @ 03:33 by Billy Huber DO) Coronary artery disease [place] in 09/2020 with LAD stent placed Hyperlipidemia Hypertension Hypothyroidism Polycystic ovarian syndrome Type 2 diabetes mellitus Surgical History (Updated 12/29/20 @ 18:26 by Mendoza Nicolas MD) History of S/P coronary artery stent placement (09/2020) Had LAD stent placed. Family History Mother Rheumatoid arthritis Leukemia Father Type 1 diabetes mellitus Social History (Updated 01/29/21 @ 18:21 by Mendoza Nicolas MD) Smoking and tobacco status: never smoked Alcohol intake: never Female Reproductive History: Date of last menstrual period: 02/11/21 Physical Exam Const: GENERAL APPEARANCE: well developed ORIENTATION/CONSCIOUSNESS: Yes oriented to person, Yes oriented to place and Yes oriented to time HENMT: COMMON NORMALS: normocephalic, external ears normal and Normal external nose present HEAD & SCALP: normocephalic FACE & SINUS: normal facial exam NOSE: Normal external nose present and No nasal discharge present EXTERNAL EAR: Yes external ears normal Eye: COMMON NORMALS: Equal, round and reactive pupils present, EOMs intact bilaterally and conjunctivae normal EYELID: eyelids normal CONJUNCTIVA: Yes conjunctivae normal PUPIL: Yes Equal, round and reactive pupils present Neck/C-Spine: COMMON NORMALS: full ROM GENERAL: No tracheal deviation CERVICAL SPINE: Yes normal cervical lordosis and No Cervical spine tenderness Chest: COMMONS NORMALS: normal inspection of the chest CHEST: No tenderness Resp: COMMON NORMALS: clear to auscultation bilaterally EFFORT & INSPECTION: No tachypneic, No respiratory distress, No retractions, No uses accessory muscles and No tracheal deviation AUSCULTATION: clear to auscultation bilaterally, no rhonchi, no wheezes and lung sounds not diminished Cardio: COMMON NORMALS: regular rate and regular rhythm RATE: regular rate RHYTHM: regular rhythm HEART SOUNDS: no murmurs PERIPHERAL PULSES: radial pulses present GI: INSPECTION: No abdominal distension AUSCULTATION: No Hyperactive bowel sounds present and No Hypoactive bowel sounds present PALPATION: Yes Tenderness to palpation present (GI) (epigastric), No Guarding due to palpation present (GI) and No Rigid due to palpation PERCUSSION: no dullness to percussion and no tympanic to percussion Neuro: SENSORIUM/ORIENTATION: Yes oriented to person, Yes oriented to place and Yes oriented to time Psych: COMMON NORMALS: mental status grossly normal Skin: COMMON NORMALS: no rashes or lesions noted GENERAL SKIN EXAM: no rashes or lesions noted Course Vital Signs: Vital signs: Vital Signs Temperature 97.5 F L 02/11/21 00:45 Pulse Rate 53 L 02/11/21 03:44 Respiratory Rate 14 02/11/21 03:44 Blood Pressure 155/79 02/11/21 03:44 Pulse Oximetry 100 02/11/21 03:44 MDM - Chest Pain MDM Narrative: Medical decision making narrative: 50-year-old female with a history of coronary disease she presents with epigastric and chest discomfort. It was somewhat in proved with a cocktail relief however was incomplete. She was offered morphine, but refused. Her EKG shows a sinus bradycardia with a rate of 50, normal axis, and no ST changes. Her troponin was normal initially and did not elevate. Her white blood cell count is 10.3 with a hemoglobin of 10.6. Her lipase was normal. No more vomiting while here. Given her history, she was offered admission and observation on the monitor with checking 6-hour troponin, but she declined admission in favor of going home. Lab Data: Labs: Lab Results 02/11/21 02/11/21 02/11/21 Range/Units 00:45 00:45 00:45 WBC 10.3 H (4.0-10.0) 10^3/ uL RBC 3.97 L (4.1-5.3) 10^6/u L Hgb 10.6 L (11.5-15.3) g/dL Hct 35.5 L (37.0-47.0) % MCV 89.4 (81-99) fL MCH 26.7 L (28.0-34.0) pg MCHC 29.9 L (30.0-36.0) g/dL RDW 17.1 H (12.1-15.1) % Plt Count 367 (130-400) 10^3/c mm MPV 11.9 H (7.4-10.4) fL Neut % (Auto) 87.0 % Lymph % (Auto) 8.6 % Rogers % (Auto) 3.4 % Eos % (Auto) 0.2 % Baso % (Auto) 0.6 % Neut # (Auto) 8.97 H (1.8-7.7) 10^3/u L Lymph # (Auto) 0.9 (0.8-4.8) 10^3/u L Rogers # (Auto) 0.4 (0.2-0.9) 10^3/u L Eos # (Auto) 0.0 (0.0-0.8) 10^3/u L Baso # (Auto) 0.1 (0.0-0.1) 10^3/u L Nucleated RBC % (a uto) 0 % Nucleated RBCs # 0.0 /100WBC Sodium Cancelled Potassium Cancelled Chloride Cancelled Carbon Dioxide Cancelled Anion Gap Cancelled BUN Cancelled Creatinine Cancelled GFR Calculation Cancelled Glucose Cancelled Calculated Osmolal ity Cancelled Calcium Cancelled Total Bilirubin Cancelled AST Cancelled ALT Cancelled Alkaline Phosphata se Cancelled Troponin T Baselin e 6 (0-10) ng/L Troponin T 120 Min seminole (0-10) ng/L Delta Troponin T (0-10) ABS# NT-Pro-B Natriuret Pep Cancelled Total Protein Cancelled Albumin Cancelled Globulin Cancelled Lipase (13-60) U/L 02/11/21 02/11/21 Range/Units 02:45 02:45 WBC (4.0-10.0) 10^3/ uL RBC (4.1-5.3) 10^6/u L Hgb (11.5-15.3) g/dL Hct (37.0-47.0) % MCV (81-99) fL MCH (28.0-34.0) pg MCHC (30.0-36.0) g/dL RDW (12.1-15.1) % Plt Count (130-400) 10^3/c mm MPV (7.4-10.4) fL Neut % (Auto) % Lymph % (Auto) % Rogers % (Auto) % Eos % (Auto) % Baso % (Auto) % Neut # (Auto) (1.8-7.7) 10^3/u L Lymph # (Auto) (0.8-4.8) 10^3/u L Rogers # (Auto) (0.2-0.9) 10^3/u L Eos # (Auto) (0.0-0.8) 10^3/u L Baso # (Auto) (0.0-0.1) 10^3/u L Nucleated RBC % (a uto) % Nucleated RBCs # /100WBC Sodium 137 Potassium 4.1 Chloride 102 Carbon Dioxide 25 Anion Gap 14.1 BUN 17 Creatinine 0.7 GFR Calculation 88.6 L Glucose 172 H Calculated Osmolal ity 290 Calcium 8.7 Total Bilirubin 0.3 AST 11 ALT 11 Alkaline Phosphata se 89 Troponin T Baselin e (0-10) ng/L Troponin T 120 Min seminole 6.00 (0-10) ng/L Delta Troponin T 0 (0-10) ABS# NT-Pro-B Natriuret Pep 130 H Total Protein 7.6 Albumin 4.4 Globulin 3.2 Lipase 35 (13-60) U/L Discharge Plan Discharge Patient Disposition: Home Clinical Impression: Atypical chest pain Condition: Stable Prescriptions: No Action atorvastatin 40 mg tablet 40 mg PO DAILY Qty: 90 RF: 2 clopidogrel 75 mg tablet 75 mg PO DAILY Qty: 90 RF: 2 lisinopril 5 mg tablet 5 mg PO DAILY Qty: 90 RF: 2 aspirin [Adult Low Dose Aspirin] 81 mg tablet,delayed release (DR/EC) 81 mg PO DAILY Qty: 90 RF: 3 docusate sodium [Stool Softener] 100 mg capsule 100 mg PO DAILY RF: 0 pantoprazole 40 mg tablet,delayed release (DR/EC) 40 mg PO DAILY Qty: 90 RF: 2 Vitamin B-12 500 mcg Tablet 500 mcg PO DAILY RF: 0 iron 325 mg (65 mg iron) tablet 325 mg PO .COMPLEX RF: 0 acetaminophen [Tylenol] 325 mg Tablet 325 mg PO QID PRN (Reason: Pain) RF: 0 metoprolol succinate 50 mg tablet extended release 24 hr 50 mg PO BID@0700,2100 RF: 0 levothyroxine [Synthroid] 150 mcg tablet 150 mcg PO DAILY@0700 RF: 0 metformin 500 mg tablet extended release 24 hr 1,000 mg PO DAILY@0700 RF: 0 Discharge Orders: Discharge ED (Routine); Ordered 02/11/21 Ordered By: Billy Huber Referrals: Martha Medina MD [Primary Care Provider] - 1-3 days Discharge Diet: Advance as tolerated Discharge Activity: Increase activity as tolerated Patient Instructions: Chest Pain (ED) Activity Restrictions/Additional Instructions: Return for nonresolution or worsening of chest discomfort, shortness of breath, vomiting liquids or medications, fever, any other concerning symptoms. Coding Level of Care Code ED Medication Reconciliation Technician for Demetrio Valentine
== END 2021-02-11 03:44 | disposition home or self-care (01) ==
PROVIDERS: Emergency Provider Emergency Medicine; PCP Family Medicine
DX: R07.89 Other chest pain (principal); Z79.02 Long term (current) use of antithrombotics/antiplatelets; Z79.82 Long term (current) use of aspirin; I25.10 Atherosclerotic heart disease of native coronary artery without angina pectoris; I25.2 Old myocardial infarction; E78.5 Hyperlipidemia, unspecified; I10 Essential (primary) hypertension; E11.9 Type 2 diabetes mellitus without complications
CPT/HCPCS: 71045; 80053; 83690; 83880; 84484; 85025; 93005; 96374; 99284; J2405

== ENCOUNTER 2021-02-19 10:18 | Outpatient (CLI) | payer BC, SELFPAY ==
--- NOTE | 2021-02-19 10:43 | CT_ITS ---
WS: [id number] CT ABDOMEN WITH CONTRAST HISTORY: EPIGASTRIC PAIN Contiguous single phase 5 mm axial imaging performed of the abdomen. Oral contrast has been provided. Coronal and sagittal reformats are submitted. All CT scans at [facility] use at least on e of these dose optimization techniques: automated exposure control; mA and/or kV adjustment per casa ent size (includes targeted exams where dose is matched to clinical indication); or iterative reconst ruction. CONTRAST: Omnipaque 300; 95 mL IV. DLP: 828.12 mGycm COMPARISON: None available. Lower thorax: Minimal scarring at the lung bases. Normal size heart. No hiatal hernia. Liver: Normal. No intrahepatic dilatation. Gallbladder: Mildly dilated gallbladder with severe wall thickening and edema. There is a stone near the neck of the gallbladder measuring 2.7 cm. Pancreas: Normal. Spleen: Normal. Adrenals: Normal. Right kidney: Normal size kidney. Cortical hypodensity in the mid kidney probably a cyst but too smal l to characterize. Left kidney: Large exophytic cyst from the LEFT kidney measures 6.7 cm in its diameter. No renal obst ruction. Aorta: Normal. GI tract: As visualized no obstruction. There is mild thickening of the duodenal C-loop due to the in flammation from the gallbladder. No adenopathy or free fluid. Abdominal wall: No hernia. Visualized osseous structures: Unremarkable. CT/CT abdomen w con* [id number] IMPRESSION: 1. Acute cholecystitis with a large stone at the gallbladder neck which may be entrapped. Surgical evaluation recommended. 2. No bile duct dilatation. 3. Bilateral renal cysts. Notified Dr. Eneida Medina at 02/19/2021 11:59 AM.
[2021-02-19] MEDS: iohexol 300 mg/mL 50 mL Btl PO (10:53)
[2021-02-19] MEDS: iohexol 300 mg/mL 100 mL Btl IV (11:25)
== END 2021-02-19 10:19 | disposition home or self-care (01) ==
PROVIDERS: PCP Family Medicine; Visit Provider Nurse Practitioner Family
DX: R10.13 Epigastric pain (principal); K59.00 Constipation, unspecified; K80.20 Calculus of gallbladder without cholecystitis without obstruction; Q61.02 Congenital multiple renal cysts
CPT/HCPCS: 74160; Q9967

== ENCOUNTER → 2021-03-08 16:06 | Outpatient (BNVA) | payer BC, SELFPAY | PROVIDERS: PCP Family Medicine; Visit Provider Obstetrics & Gynecology | DX: D62 Acute posthemorrhagic anemia (principal) | CPT/HCPCS: 85027 ==

== ENCOUNTER 2021-04-13 09:31 | Outpatient (CLI) | payer BC, SELFPAY ==
--- NOTE | 2021-04-13 09:34 | MM_ITS ---
WS: [id number] Bilateral screening digital mammogram, 04/13/2021 Clinical Data: SCREENING Comparison: None. Findings: The breast parenchymal pattern shows fibroglandular tissue No spiculated masses or clustered calcific ations are seen. There are no secondary signs of carcinoma. MM/[place] [id number] Impression: 1. Negative bilateral mammogram unchanged. 2. Recommend annual screening mammograms. BIRADS: 1-Negative FOLLOW UP: 1 Year Follow-up The CAD lumber checker was used.
== END 2021-04-13 09:32 | disposition home or self-care (01) ==
LOC: RADSHAW 09:34
PROVIDERS: PCP Family Medicine; Visit Provider Family Medicine
DX: Z12.31 Encounter for screening mammogram for malignant neoplasm of breast (principal)
CPT/HCPCS: 77067

== ENCOUNTER 2021-04-21 08:52 | Emergency (ER) | payer BC, SELFPAY ==
[2021-04-21 09:06] VITALS: BP 156/91; PULSE 70; RESP 16; TEMP 36.4; O2SAT 99; BMI 36.3
--- NOTE | 2021-04-21 09:14 | ED_ITS ---
HPI - Abdominal Pain General: Chief Complaint: Abdominal Pain Stated Complaint: UPPER ABD PAIN Time Seen by Provider: 04/21/21 09:11 History of Present Illness: HPI narrative: Patient is a 50-year-old female comes to the ED with abdominal pain. Patient has a past medical history of gallstones, CAD, type 2 diabetes, hypertension, hyperlipidemia and hypothyroidism. Abdominal pain started last night. Patient says she has been eating healthier patient is unsure of what she ate last night that would have caused her gallbladder pain. Pain is located in the right upper quadrant of the abdomen and radiates to the right side of her back. She rates the pain to be 8 out of 10. Patient is currently on a blood thinner clopidogrel and saw Dr. Pierre yesterday for a previous surgery evaluation. Patient had a cardiac stent placed in September 2020 and before patient can have cholecystectomy done she has to be off of her blood thinners for a couple days presurgery. She also sees Dr. Dolan her cabinet builder and Dr. Pierre and Dr. Woods would like to wait at least 6 months, but preferably 12 months before she goes off of her blood thinner and has a cholecystectomy. Dr. Pierre did tell her that they can reevaluate if she starts having gallbladder pain and issues again. Associated Symptoms: Reports nausea; Denies chills, constipation, diarrhea, dysuria, fever(s), hematochezia, hematuria and vomiting Related Data: Date of Last Menstrual Period: 02/11/21 Review of Systems Const: Denies: fever(s), chills or fatigue Eyes: Denies: change in vision or eye discomfort ENMT: Denies: throat pain, odynophagia, nasal discharge or nasal congestion Card: Denies: chest pain, palpitations, edema, swelling of feet/ankles, dyspnea on exertion or orthopnea Resp: Denies: dyspnea, productive cough or non-productive cough GI: Reports: abdominal pain and nausea; Denies: vomiting, diarrhea, constipation or hematochezia : Denies: flank pain, dysuria or hematuria Musc: Denies: neck pain, back pain or extremity swelling Skin/Breast: Denies: rash or new lesions Neuro: Denies: headache(s), numbness in extremities or weakness in extremities PFS ED PFSH: Medical History Coronary artery disease [place] in 09/2020 with LAD stent placed Hyperlipidemia Hypertension Hypothyroidism Polycystic ovarian syndrome Type 2 diabetes mellitus Surgical History History of S/P coronary artery stent placement (09/2020) Had LAD stent placed. Family History Mother Rheumatoid arthritis Leukemia Father Type 1 diabetes mellitus Social History Smoking and tobacco status: never smoked Alcohol intake: never Female Reproductive History: Date of last menstrual period: 02/11/21 Physical Exam Const: COMMON NORMALS: no acute distress, patient oriented x3 and alert GENERAL APPEARANCE: cooperative and comfortable HENMT: COMMON NORMALS: normocephalic HEAD & SCALP: normocephalic MOUTH: Normal oral and palatal mucosa present THROAT: posterior oropharynx normal and uvula midline Neck/C-Spine: COMMON NORMALS: supple GENERAL: Yes normal visual inspection Resp: COMMON NORMALS: normal respiratory effort, No retractions, No use of accessory muscles and clear to auscultation bilaterally AUSCULTATION: clear to auscultation bilaterally Cardio: COMMON NORMALS: regular rate, regular rhythm, S1 normal heart sound present, S2 normal heart sound present, No gallops present (Cardio), No clicks present (Cardio), No murmurs present (Cardio) and Peripheral pulses 2+ throughout RATE: regular rate RHYTHM: regular rhythm HEART SOUNDS: S1 normal heart sound present and S2 normal heart sound present PERIPHERAL PULSES: Peripheral pulses 2+ throughout GI: COMMON NORMALS: Normal to inspection, nondistended, normoactive bowel sounds present, Soft to palpation and no masses PALPATION: Yes Soft to palpation and Yes Tenderness to palpation present (GI) Details: RUQ (Positive Hunt sign) : COMMON NORMALS: Yes no CVA tenderness BLADDER/KIDNEY EXAM: Yes no CVA tenderness Back/Pelvis: COMMON NORMALS: no CVA tenderness Extremity: COMMON NORMALS: normal to inspection Neuro: COMMON NORMALS: patient oriented x3 SENSORIUM/ORIENTATION: Yes alert GAIT: Yes Normal gait present Skin: GENERAL SKIN EXAM: dry skin Course Consultations: Consultation #1: I spoke with Dr. Pierre about patient's case. He told me to put patient on Cipro and Flagyl and control her pain and send her home on a clear liquid diet. Vital Signs: Vital signs: Vital Signs Temperature 97.5 F L 04/21/21 09:06 Pulse Rate 52 L 04/21/21 11:43 Respiratory Rate 16 04/21/21 11:43 Blood Pressure 180/81 04/21/21 11:43 Pulse Oximetry 100 04/21/21 11:43 MDM - Abdominal Pain MDM Narrative: Medical decision making narrative: Patient is a 50-year-old female comes to the ED with right upper quadrant abdominal pain. Patient has been having gallbladder issues in the past and his seen Dr. Pierre recently for a preop screening for cholecystectomy. Patient appears in no acute distress or pain. Her pain was controlled here in the ED. Her labs were unremarkable. Ultrasound the gallbladder showed some stones and sludge with mild gallbladder wall thickening and CBD was normal. I contact Dr. Pierre and told about patient case. He told me that I should put patient on Cipro and Flagyl and that he will see patient in the clinic for another evaluation. I placed an order with case management to make sure patient is set up with another visit with Dr. Pierre. Patient was discharged with a prescription for Cipro, Flagyl, Zofran and [place] 5-325 mg tablets. Return ED precautions given. Patient understood and agree with plan. Lab Data: Labs: Lab Results 04/21/21 04/21/21 04/21/21 Range/Units 09:36 09:36 09:36 WBC 10.2 H (4.0-10.0) 10^3/ uL RBC 4.77 (4.1-5.3) 10^6/u L Hgb 12.1 (11.5-15.3) g/dL Hct 40.1 (37.0-47.0) % MCV 84.1 (81-99) fL MCH 25.4 L (28.0-34.0) pg MCHC 30.2 (30.0-36.0) g/dL RDW 19.3 H (12.1-15.1) % Plt Count 421 H (130-400) 10^3/c mm MPV 11.7 H (7.4-10.4) fL Neut % (Auto) 76.3 % Lymph % (Auto) 15.2 % [place] % (Auto) 5.8 % Eos % (Auto) 1.7 % Baso % (Auto) 0.8 % Neut # (Auto) 7.81 H (1.8-7.7) 10^3/u L Lymph # (Auto) 1.6 (0.8-4.8) 10^3/u L [place] # (Auto) 0.6 (0.2-0.9) 10^3/u L Eos # (Auto) 0.2 (0.0-0.8) 10^3/u L Baso # (Auto) 0.1 (0.0-0.1) 10^3/u L Nucleated RBC % (a uto) 0 % Nucleated RBCs # 0.0 /100WBC Sodium 133 L (136-145) mmol/L Potassium 4.3 (3.5-5.1) mmol/L Chloride 98 (98-107) mmol/L Carbon Dioxide 25 (22-29) mmol/L Anion Gap 14.3 (5-19) BUN 11 (6-20) mg/dL Creatinine 0.7 (0.5-0.9) mg/dL GFR Calculation 88.6 L (90-130) mL/min Glucose 130 H (65-115) mg/dL Calculated Osmolal ity 277 L (285-295) mOsm/k g Calcium 8.9 (8.5-10.5) mg/dL Total Bilirubin 0.4 (0.15-1.2) mg/dL AST 11 (0-32) U/L ALT 12 (0-33) U/L Alkaline Phosphata se 104 (35-105) IU/L Total Protein 8.3 (6.6-8.7) g/dL Albumin 4.4 (3.5-5.2) g/dL Globulin 3.9 (1.3-4.6) g/dL Lipase 31 (13-60) U/L Urine Color (Yellow) Urine Appearance (CLEAR) Urine pH (5-7) Ur Specific Gravit y (1.005-1.030) Urine Protein (Negative) Urine Glucose (UA) (Normal) Urine Ketones (Negative) Urine Blood (Negative) Urine Nitrate (Negative) Urine Bilirubin (Negative) Urine Urobilinogen (Negative) mg/dL Ur Leukocyte Yessenia ase (Negative) Urine RBC (0-2) /hpf Urine WBC (0-5) /hpf Ur Squamous Epith Cells (0-5) /hpf Amorphous Sediment Urine Bacteria (NONE) /hpf H. pylori IgG Anti body Negative (Negative) 04/21/21 Range/Units 09:45 WBC (4.0-10.0) 10^3/ uL RBC (4.1-5.3) 10^6/u L Hgb (11.5-15.3) g/dL Hct (37.0-47.0) % MCV (81-99) fL MCH (28.0-34.0) pg MCHC (30.0-36.0) g/dL RDW (12.1-15.1) % Plt Count (130-400) 10^3/c mm MPV (7.4-10.4) fL Neut % (Auto) % Lymph % (Auto) % [place] % (Auto) % Eos % (Auto) % Baso % (Auto) % Neut # (Auto) (1.8-7.7) 10^3/u L Lymph # (Auto) (0.8-4.8) 10^3/u L [place] # (Auto) (0.2-0.9) 10^3/u L Eos # (Auto) (0.0-0.8) 10^3/u L Baso # (Auto) (0.0-0.1) 10^3/u L Nucleated RBC % (a uto) % Nucleated RBCs # /100WBC Sodium (136-145) mmol/L Potassium (3.5-5.1) mmol/L Chloride (98-107) mmol/L Carbon Dioxide (22-29) mmol/L Anion Gap (5-19) BUN (6-20) mg/dL Creatinine (0.5-0.9) mg/dL GFR Calculation (90-130) mL/min Glucose (65-115) mg/dL Calculated Osmolal ity (285-295) mOsm/k g Calcium (8.5-10.5) mg/dL Total Bilirubin (0.15-1.2) mg/dL AST (0-32) U/L ALT (0-33) U/L Alkaline Phosphata se (35-105) IU/L Total Protein (6.6-8.7) g/dL Albumin (3.5-5.2) g/dL Globulin (1.3-4.6) g/dL Lipase (13-60) U/L Urine Color Straw (Yellow) Urine Appearance Clear (CLEAR) Urine pH 5 (5-7) Ur Specific Gravit y 1.020 (1.005-1.030) Urine Protein Neg (Negative) Urine Glucose (UA) Norm (Normal) Urine Ketones Negative (Negative) Urine Blood 3+ H (Negative) Urine Nitrate Negative (Negative) Urine Bilirubin Neg (Negative) Urine Urobilinogen Norm (Negative) mg/dL Ur Leukocyte Yessenia ase Negative (Negative) Urine RBC 5-10 H (0-2) /hpf Urine WBC 0-4 H (0-5) /hpf Ur Squamous Epith Cells 5-10 H (0-5) /hpf Amorphous Sediment Not Reportable Urine Bacteria 1+ H (NONE) /hpf H. pylori IgG Anti body (Negative) Imaging Data ^: US: Attestation: I personally reviewed and interpreted this imaging study as follows: Radiologist's impression: [address] [address] Ultrasound Report Signed Patient: Ira Leal Unit #: [id number] : 1970 Age/Sex: 50 / F ADM Date: 04/21/21 Loc: ER Room/Bed: Attending Dr: Ordering Provider/Ordering MD: Wilder Tran Date of Service: 04/21/21 Procedure(s): US gall bladder 65379 Accession Number(s): [id number] Report Number: [id number] PROCEDURE INFORMATION: Exam: US Abdomen, Limited; Right Upper Quadrant Exam date and time: 04/21/2021 9:27 AM Age: 50 years old Clinical indication: Abdominal pain; Additional info: Ruq pain with nausea TECHNIQUE: Imaging protocol: US abdomen. Real time ultrasound with image documentation. Limited exam focused on the right upper quadrant. COMPARISON: CT abdomen w con* [id number] 02/19/2021 11:22 AM FINDINGS: Liver: There is increased echogenicity of the liver consistent with fatty liver. No liver masses are seen. Cholelithiasis. There is a 3.3 cm stone in the gallbladder neck. There is a small amount of bile sludge in the gallbladder. The gallbladder wall is mildly prominent at 3 mm. Hunt sign is positive. Gallbladder: See Liver finding. Common bile duct: The bile ducts are normal. The common duct measures 5 mm in diameter. Pancreas: Visualized pancreas is unremarkable. Right kidney: There is a benign 1.3 cm cyst in the midportion of the right kidney. Otherwise the right kidney is unremarkable. US/US gall bladder [id number] IMPRESSION: 1. Cholelithiasis. Mild gallbladder wall thickening and positive Hunt sign may indicate cholecystitis. 2. Normal bile ducts. 3. Fatty liver. Dictated By: Paco Singletary Signed By: Paco Singletary Signed Date/Time: 04/21/21 105 DD/ 1053 Discharge Plan Discharge Patient Disposition: Home Clinical Impression: Cholelithiasis Qualifiers: Cholelithiasis location: gallbladder Cholecystitis presence: without cholecystitis Biliary obstruction: without biliary obstruction Qualified Code(s): K80.20 - Calculus of gallbladder without cholecystitis without obstruction Condition: Stable Prescriptions: New ondansetron 4 mg tablet,disintegrating 4 mg PO Q8H PRN (Reason: nausea and vomiting) Qty: 15 RF: 0 Flagyl 500 mg tablet 500 mg PO Q8H 7 Days Qty: 21 RF: 0 Cipro 500 mg tablet 500 mg PO BID 7 Days Qty: 14 RF: 0 No Action aspirin [Adult Low Dose Aspirin] 81 mg tablet,delayed release (DR/EC) 81 mg PO DAILY Qty: 90 RF: 3 docusate sodium [Stool Softener] 100 mg capsule 100 mg PO DAILY RF: 0 clopidogrel 75 mg tablet 75 mg PO DAILY Qty: 90 RF: 2 lisinopril 5 mg tablet 5 mg PO DAILY Qty: 90 RF: 2 iron 325 mg (65 mg iron) tablet 325 mg PO .COMPLEX RF: 0 atorvastatin 40 mg tablet 40 mg PO DAILY@2100 RF: 0 acetaminophen [Tylenol] 325 mg Tablet 325 mg PO QID PRN (Reason: Pain) RF: 0 metoprolol succinate 50 mg tablet extended release 24 hr 50 mg PO BID@0700,2100 RF: 0 levothyroxine [Synthroid] 150 mcg tablet 137 mcg PO DAILY@0700 RF: 0 metformin 500 mg tablet extended release 24 hr 500 mg PO DAILY@0700 RF: 0 Discharge Orders: Discharge ED (Routine); Ordered 04/21/21 Ordered By: Wilder Tran Referrals: Martha Medina MD [Primary Care Provider] - Discharge Diet: Advance as tolerated and Clear Liquid Discharge Activity: Increase activity as tolerated Patient Instructions: Cholelithiasis, Clear Liquid Diet (ED), Opioid Safety Activity Restrictions/Additional Instructions: Follow-up with medical provider as directed. Case management should be contacting you in the next several days to set up an appointment with Dr. Pierre. Continue taking your Plavix until told otherwise by Dr. Pierre. Start with a clear liquid diet and slowly advance to avoid any worsening symptoms. Take medications as prescribed. Return to the ER or your medical provider if condition worsens. Please read and understand discharge instructions. Thank you for choosing [facility] for your healthcare needs today. Please realize this is an emergency room and that we are providing you with a medical screening exam and this may not be complete and all inclusive of all the testing and or work up that you may need to determine your ailment or severity of your illness. It is very important that you follow up as instructed or that you return to the Emergency Department should you have concerns or if your condition changes or worsens in any way. Coding Level of Care Code ED Deli Cutter Slicer for Chg Fwd Exam Comprehensive
--- NOTE | 2021-04-21 09:27 | USR_ITS ---
PROCEDURE INFORMATION: Exam: US Abdomen, Limited; Right Upper Quadrant Exam date and time: 04/21/2021 9:27 AM Age: 50 years old Clinical indication: Abdominal pain; Additional info: Ruq pain with nausea TECHNIQUE: Imaging protocol: US abdomen. Real time ultrasound with image documentation. Limited exam focused on the right upper quadrant. COMPARISON: CT abdomen w con* [id number] 02/19/2021 11:22 AM FINDINGS: Liver: There is increased echogenicity of the liver consistent with fatty liver. No liver masses are seen. Cholelithiasis. There is a 3.3 cm stone in the gallbladder neck. There is a small amount of bile sludge in the gallbladder. The gallbladder wall is mildly prominent at 3 mm. Hunt sign is positive. Gallbladder: See Liver finding. Common bile duct: The bile ducts are normal. The common duct measures 5 mm in diameter. Pancreas: Visualized pancreas is unremarkable. Right kidney: There is a benign 1.3 cm cyst in the midportion of the right kidney. Otherwise the right kidney is unremarkable. US/US gall bladder [id number] IMPRESSION: 1. Cholelithiasis. Mild gallbladder wall thickening and positive Hunt sign may indicate cholecystitis. 2. Normal bile ducts. 3. Fatty liver.
[2021-04-21 09:32] VITALS: BP 162/98; PULSE 62; RESP 18; O2SAT 100
[2021-04-21 09:44] LABS: Basophils # 0.1 10^3/uL (0.0-0.1); Basophils % 0.8 %; Eosinophils # 0.2 10^3/uL (0.0-0.8); Eosinophils % 1.7 %; Hematocrit 40.1 % (37.0-47.0); Hemoglobin 12.1 g/dL (11.5-15.3); Lymphocytes # 1.6 10^3/uL (0.8-4.8); Lymphocytes % 15.2 %; Mean Corpuscular HGB Conc 30.2 g/dL (30.0-36.0); Mean Corpuscular Hemoglobin 25.4 pg (28.0-34.0); Mean Corpuscular Volume 84.1 fL (81-99); Mean Platelet Volume 11.7 fL (7.4-10.4); Monocytes # 0.6 10^3/uL (0.2-0.9); Monocytes % 5.8 %; Neutrophils # 7.81 10^3/uL (1.8-7.7); Neutrophils % 76.3 %; Nucleated Red Blood Cells % 0 %; Platelet Count 421 10^3/cmm (130-400); Red Blood Count 4.77 10^6/uL (4.1-5.3); Red Cell Distribution Width 19.3 % (12.1-15.1); White Blood Count 10.2 10^3/uL (4.0-10.0)
[2021-04-21 09:45] VITALS: RESP 16
[2021-04-21] MEDS: morphine 4 mg/mL SDV 1 mL IVP (09:45)
[2021-04-21] MEDS: sodium chloride 0.9% 500 ML 999 ML IV (09:46)
[2021-04-21 10:01] LABS: Alanine Aminotransferase 12 U/L (0-33); Albumin Level 4.4 g/dL (3.5-5.2); Alkaline Phosphatase 104 IU/L (35-105); Anion Gap 14.3 (5-19); Aspartate Amino Transferase 11 U/L (0-32); Blood Urea Nitrogen 11 mg/dL (6-20); Calcium 8.9 mg/dL (8.5-10.5); Carbon Dioxide 25 mmol/L (22-29); Chloride 98 mmol/L (98-107); Globulin 3.9 g/dL (1.3-4.6); Glomerular Filtration Rate 88.6 mL/min (90-130); Glucose 130 mg/dL (65-115); Lipase 31 U/L (13-60); Osmolality Calculated 277 mOsm/kg (285-295); Potassium 4.3 mmol/L (3.5-5.1); Sodium 133 mmol/L (136-145); Total Bilirubin 0.4 mg/dL (0.15-1.2); Total Protein 8.3 g/dL (6.6-8.7)
[2021-04-21 10:02] LABS: H. Pylori IgG Antibody Negative (Negative)
[2021-04-21 10:19] VITALS: BP 150/82; PULSE 50; RESP 16; O2SAT 100
[2021-04-21 10:28] LABS: Add Urine Culture? No; Bacteria Urine 1+ /hpf; Bilirubin Urine Neg (Negative); Blood Urine 3+ (Negative); Glucose Urine UA Norm (Normal); Ketones Urine Negative (Negative); Leukocyte Esterase Urine Negative (Negative); Nitrate Urine Negative (Negative); Protein Urine Neg (Negative); Urine Appearance Clear (CLEAR); Urine Color Straw (Yellow); Urobilinogen Urine Norm (Negative); WBC Urine 0-4 /hpf (0-5); pH Urine 5 (5-7)
[2021-04-21 11:09] VITALS: BP 171/82; PULSE 52; RESP 16; O2SAT 99
[2021-04-21] MEDS: metroNIDAZOLE 500 MG Tablet PO (11:20)
[2021-04-21] MEDS: ciprofloxacin 500 mg Tablet PO (11:20)
[2021-04-21 11:43] VITALS: BP 180/81; PULSE 52; RESP 16; O2SAT 100
--- NOTE | 2021-04-24 13:44 | DCPLANNER ---
disaster recovery manager had message to schedule a follow up appointment for patient with general surgery for gallbladder pain. disaster recovery manager emailed patients information to Mei at [facility] General Surgery. Patients information will be printed and reviewed. Clinic will call patient with appointment information.
--- NOTE | 2021-04-26 07:58 | DCPLANNER ---
business affairs manager was informed that patient is already being seen at [facility] General Surgery and is scheduled for surgery on 05.02.[address] Pierre.
== END 2021-04-21 11:45 | disposition home or self-care (01) ==
PROVIDERS: Emergency Provider Physician Assistant; PCP Family Medicine
DX: K80.20 Calculus of gallbladder without cholecystitis without obstruction (principal); Z79.84 Long term (current) use of oral hypoglycemic drugs; Z79.02 Long term (current) use of antithrombotics/antiplatelets; Z79.82 Long term (current) use of aspirin; I25.10 Atherosclerotic heart disease of native coronary artery without angina pectoris; E78.5 Hyperlipidemia, unspecified; I25.2 Old myocardial infarction; I10 Essential (primary) hypertension; E11.9 Type 2 diabetes mellitus without complications
CPT/HCPCS: 76705; 80053; 81001; 83690; 85025; 86677; 96374; 99284; J2270; J7040

== ENCOUNTER → 2021-04-26 11:48 | Outpatient (BNVA) | payer BC, SELFPAY | PROVIDERS: PCP Family Medicine; Visit Provider Surgery | DX: Z11.52 Encounter for screening for COVID-19 (principal) | CPT/HCPCS: 87635 ==

== ENCOUNTER 2021-05-02 05:48 | Day surgery (SDC) | payer BC, SELFPAY ==
[2021-05-01 17:55] VITALS: BMI 35.4
[2021-05-02] VITALS (15 sets, daily range): BP systolic 126–150; BP diastolic 58–83; PULSE 53–81; RESP 12–21; TEMP 36.1–36.6; O2SAT 94–100
--- NOTE | 2021-05-02 06:11 | ECG_ITS ---
[facility] Test Date: 2021-05-02 Pat Name: Ira Leal Department: Room: Gender: Female Liability Analyst: : 1970 Requested By: Gareht Trimble Order Number: [id number] Ivette MD: Galina Baires M.D. Measurements Intervals [place] Rate: 66 P: 6 SC: 157 QRS: 6 QRSD: 78 T: 30 QT: 386 QTc: 405 Interpretive Statements SINUS RHYTHM LOW QRS VOLTAGE IN PRECORDIAL LEADS [QRS DEFLECTION < 1.0 mV IN CHEST LEADS] Compared to ECG 02/11/2021 02:51:21 Low QRS voltage now present Sinus bradycardia no longer present Myocardial infarct finding no longer present Electronically Signed On 05-02-2021 21:59:42 CDT by Galina Baires M.D. [id number]
[2021-05-02] MEDS: sodium chloride 0.9% 1,000 ML 30 ML IV (06:31)
[2021-05-02 06:32] LABS: Glucose Point of Care 111 mg/dL (70-110)
[2021-05-02 06:39] LABS: Basophils # 0.1 10^3/uL (0.0-0.1); Basophils % 1.2 %; Eosinophils # 0.7 10^3/uL (0.0-0.8); Eosinophils % 6.7 %; Hematocrit 40.6 % (37.0-47.0); Hemoglobin 12.2 g/dL (11.5-15.3); Lymphocytes # 2.6 10^3/uL (0.8-4.8); Lymphocytes % 26.3 %; Mean Corpuscular Hemoglobin 24.9 pg (28.0-34.0); Mean Corpuscular Volume 82.9 fL (81-99); Mean Platelet Volume 11.7 fL (7.4-10.4); Monocytes # 0.9 10^3/uL (0.2-0.9); Monocytes % 8.9 %; Neutrophils # 5.67 10^3/uL (1.8-7.7); Neutrophils % 56.6 %; Nucleated Red Blood Cells % 0 %; Platelet Count 516 10^3/cmm (130-400); Red Cell Distribution Width 19.6 % (12.1-15.1)
[2021-05-02 06:43] LABS: OR HCG Qualitative Urine Negative (Negative)
--- NOTE | 2021-05-02 06:49 | P.ANESASSM_ITS ---
Pre-Anesthetic Assessment Pre-Anesthetic Assessment: Height/Weight: Height 1.6 m Weight 90.718 kg Temp Pulse Resp BP Pulse Ox 97.9 F 81 18 132/73 100 05/02/21 06:16 05/02/21 06:16 05/02/21 06:16 05/02/21 06:16 05/02/21 06:16 Preop Diagnosis: Cholelithiasis Proposed Procedure: Operation Date: 05/02/21 07:00 Proposed Procedures p Laparoscopic Cholecystectomy 15420 K80.20(Not Applicable) - Cj Pierre MD Was Beta Shira taken within 24 hours: Yes Was Clonidine taken within 24 hours: N/A Last intake: Intake Last Liquid Date 05/01/21 Last Liquid Time 21:00 Last Solid Date 05/01/21 Last Solid Time 21:00 Social: Social History: No alcohol and No tobacco Exam: Pre-Anes Outpt Exam: alert, oriented x 3, clear to auscultation bilat erally and regular rate & rhythm Airway: Submandibular: WNL Cervical ROM: WNL MP: 2 Dentition: Full CV/HEM: CV/HEM: CAD (stent), HTN and DE Metabolic: Metabolic: DM, Morbid obesity and Thyroid Anesthetic Plan: ASA status: 3 Anesthesia: General Risk of > 500 ml blood loss (7ml/kg in children): No Meds/Allergies Current Medications: Current Medications Generic Name Dose Route Start Last Admin Trade Name Freq PRN Reason Stop Dose Admin Sodium Chloride 1,000 mls @ 30 ml s/hr 05/02/21 06:15 05/02/21 06:31 Sodium Chloride 0.9% IV 05/03/21 06:14 30 mls/hr .Q24H TOBIAS Administration PFSH Anesthesia PFSH: Medical History Coronary artery disease [place] in 09/2020 with LAD stent placed Hyperlipidemia Hypertension Hypothyroidism Polycystic ovarian syndrome Type 2 diabetes mellitus Surgical History History of S/P coronary artery stent placement (09/2020) Had LAD stent placed. Family History Mother Rheumatoid arthritis Leukemia Father Type 1 diabetes mellitus Social History Smoking and tobacco status: never smoked Alcohol intake: never Female Reproductive History: Date of last menstrual period: 02/11/21 Data Anesthesia CBC & Chem 7: 05/02/21 06:34 Other Labs: Laboratory Results - last 48 hr 05/02/21 05/02/21 05/02/21 06:29 06:34 06:42 WBC 10.0 RBC 4.90 Hgb 12.2 Hct 40.6 MCV 82.9 MCH 24.9 L MCHC 30.0 RDW 19.6 H Plt Count 516 H MPV 11.7 H Neut % (Auto) 56.6 Lymph % (Auto) 26.3 [place] % (Auto) 8.9 Eos % (Auto) 6.7 Baso % (Auto) 1.2 Neut # (Auto) 5.67 Lymph # (Auto) 2.6 [place] # (Auto) 0.9 Eos # (Auto) 0.7 Baso # (Auto) 0.1 Nucleated RBC % (auto) 0 Nucleated RBCs # 0.0 POC Glucose 111 H Urine HCG, Qual Negative Cardiac Studies: No Data to Display
--- NOTE | 2021-05-02 06:57 | W.PM.OPSUD ---
Surgery/Procedure H&P Update DATE OF PROCEDURE: May 02, 2021 DATE H&P PERFORMED: 04/20/21 H&P UPDATE INFORMATION: I have reviewed H&P completed within last 30 days, I have examined patient prior to procedure and No changes to prior documentation PREOP DIAGNOSIS: Cholelithiasis PLANNED PROCEDURE: Operation Date: 05/02/21 07:00 Proposed Procedures p Laparoscopic Cholecystectomy 89093 K80.20(Not Applicable) - Cj Pierre MD
--- NOTE | 2021-05-02 08:10 | PC.NURSE ---
Called to update on progress @ 0811.
--- NOTE | 2021-05-02 09:24 | PC.NURSE ---
Called to update @ 1157.
--- NOTE | 2021-05-02 10:25 | PM.OP ---
Operative Report Date of procedure: May 02, 2021 Pre-op Diagnosis: Cholelithiasis Post-op Diagnosis: Acute on chronic cholecystitis Cholelithiasis Significant inflammation at the Calot's triangle, cystic duct could not be completely skeletonized Procedure Done: Laparoscopic cholecystectomy Specimens removed/disposition: Gallbladder Surgeon: Cj Pierre Anesthesia: General Condition: stable Disposition: PACU Procedure: The patient was taken to the operating room and was intubated under general anesthesia. After the antibiotic had been administered, the abdomen was prepped and draped in a sterile manner. Using a #15 blade, a 1 centimeter infraumbilical curvilinear incision was made and using an open Christos technique the peritoneal cavity was entered. A 10 millimeter port was placed and 15 millimeters of pneumoperitoneum was created. A 10 millimeter, 30 degrees scope was then introduced. Three 5 millimeter ports were placed in the epigastric, midclavicular and the anterior axillary line two fingerbreadths below the costal margin on the right side under the direct visualization. The hepatic flexure and proximal transverse colon along with the antrum of the stomach was adherent to the gallbladder. Using combination of electrocautery and dissection with suction joinery patternmaker the stomach and the colon was taken down until the gallbladder could be visualized completely. The gallbladder wall was extremely thickened and inflamed. There was significant amount of inflammation in the Calot's triangle. Ratcheted forceps were introduced into the lateral most port and was used to retract the fundus of the gallbladder cephalad and using forceps the infundibulum of the gallbladder was retracted laterally. Using L-hook cautery the peritoneum overlying the Calot's triangle was opened medially and laterally. Dissection of the colostomy was difficult and therefore the dissection was carried from fundus down. There is no obvious plane between the gallbladder and the liver which made dissection difficult. There are multiple openings made in the body of the gallbladder but there is no spillage of small stones. During dissection of the Calot's triangle there was bleeding from the cystic duct which was controlled with scissors clips and cautery. The cystic duct appeared thickened and inflamed and the gallbladder was divided but there was no leakage of bile noted. The inflamed tissue around the cystic duct was tied off with Endoloop PDS. The rest of the gallbladder was dissected off the liver using L-hook cautery. There was no bleeding or bile leakage noted from the gallbladder fossa and the clips appeared to be in place. An EndoCatch bag was introduced to remove the gallbladder. A 10 flat RIP drain was placed in the subhepatic space for potential future bile leak and externalized through the lateralmost 5 mm port and sutured with two 3-0 Prolene suture. All the ports were removed under direct visualization and there was no bleeding noted from the port sites. The fascia of the umbilicus was closed using [id number] 0 Vicryl sutures and the subcutaneous tissue was approximated using 3-0 Vicryl sutures. The skin at all 3 ports were closed using 4-0 Monocryl and Dermabond. A total of 10 millimeters of 0.5% Marcaine was infiltrated around the port sites. The patient was stable throughout the procedure.
[2021-05-02] MEDS: fentaNYL 50 mcg/mL INJ 2mL IVP ×2 (10:42→10:47)
[2021-05-02] MEDS: HYDROcodone-acetaminophen 5-325 mg Tablet 1 TAB PO (12:11)
--- NOTE | 2021-05-02 17:17 | ANE.PACU2 ---
Inpatient post-anesthesia follow up: Airway intact: Yes Vital signs: Temperature 97.7 F Pulse Rate 59 Respiratory Rate 18 Blood Pressure 128/76 Pulse Oximetry 97 Oxygen Delivery Me thod Room Air Oxygen Flow Rate 8 Fraction of Inspir ed Oxygen Hydration adequate: Yes Nausea and vomiting: No Pain level: 2 Mental status: Baseline
== END 2021-05-02 12:50 | disposition home or self-care (01) ==
PROVIDERS: Anesthesiology; PCP Family Medicine; Visit Provider Surgery
PROC: 0FT44ZZ Resection of Gallbladder, Percutaneous Endoscopic Approach (ICD-10-PCS; CPT 47562; principal; 2021-05-02 07:00)
DX: K80.10 Calculus of gallbladder with chronic cholecystitis without obstruction (principal); I25.10 Atherosclerotic heart disease of native coronary artery without angina pectoris; Z95.5 Presence of coronary angioplasty implant and graft; I10 Essential (primary) hypertension; I25.2 Old myocardial infarction; E11.9 Type 2 diabetes mellitus without complications; E66.01 Morbid (severe) obesity due to excess calories; Z68.35 Body mass index [BMI] 35.0-35.9, adult; E78.5 Hyperlipidemia, unspecified; Z79.82 Long term (current) use of aspirin; Z79.84 Long term (current) use of oral hypoglycemic drugs
CPT/HCPCS: 47562; 36415; 36416; 81025; 82962; 84703; 85025; 88304; 93005; 96365; J0690; J1100; J1170; J1200; J1885; J2370; J2405; J2704; J2710; J3010; J3490; J7030

== ENCOUNTER → 2021-10-15 13:42 | Outpatient (BNVA) | payer BC, SELFPAY | PROVIDERS: PCP Family Medicine; Visit Provider Surgery | DX: Z01.812 Encounter for preprocedural laboratory examination (principal); Z20.822 Contact with and (suspected) exposure to COVID-19 | CPT/HCPCS: 87635 ==

== ENCOUNTER 2021-10-18 09:41 | Day surgery (SDC) | payer BC, SELFPAY ==
[2021-10-15 12:13] VITALS: BMI 34.5
--- NOTE | 2021-10-18 09:53 | ANES.PREANE2 ---
Pre-Anesthetic Assessment Pre-Anesthetic Assessment: Height/Weight: Height 1.6 m Weight 88.451 kg Preop Diagnosis: Cholelithiasis Proposed Procedure: Operation Date: 10/18/21 11:15 Proposed Procedures p Colonoscopy 22141 z12.11(Not Applicable) - Cj Pierre MD Familial anesthetic complications: none Was Beta Shira taken within 24 hours: Yes Was Clonidine taken within 24 hours: N/A Last intake: > 8 hrs Social: Social History: No alcohol and No tobacco Exam: Pre-Anes Outpt Exam: alert, oriented x 3, clear to auscultation bilaterally and regular rate & rhythm Airway: MP: 2 Dentition: Full CV/HEM: CV/HEM: CAD (stent 1 year ago) and HTN Metabolic: Metabolic: DM and Thyroid Anesthetic Plan: ASA status: 3 Anesthesia: MAC Risk of > 500 ml blood loss (7ml/kg in children): No PFSH Anesthesia PFSH: Medical History Coronary artery disease [place] in 09/2020 with LAD stent placed Gallstones Hyperlipidemia Hypertension Hypothyroidism Polycystic ovarian syndrome Type 2 diabetes mellitus Surgical History History of S/P coronary artery stent placement (09/2020) Had LAD stent placed. Family History Mother Rheumatoid arthritis Leukemia Father Type 1 diabetes mellitus Chronic kidney disease (CKD) Diabetes Denies family history of CAD (coronary artery disease) Hyperlipidemia Bleeding disorder Hypertension Stroke Social History Alcohol intake: never Female Reproductive History: Date of last menstrual period: 02/11/21 Data Anesthesia Cardiac Studies: Echocardiogram Ultrasound 10/14/20
[2021-10-18 10:27] VITALS: BP 118/78; PULSE 70; RESP 18; TEMP 36.6; O2SAT 100
[2021-10-18] MEDS: sodium chloride 0.9% 1,000 ML 30 ML IV (10:27)
[2021-10-18 10:29] LABS: OR HCG Qualitative Urine Negative (Negative)
--- NOTE | 2021-10-18 11:08 | W.PM.OPSFHP ---
Same Day Surgery H&P Indication for Procedure/HPI DATE OF PROCEDURE: October 18, 2021 CHIEF COMPLAINT/INDICATIONFOR SURGICAL PROCEDURE: colonoscopy PREOP DIAGNOSIS: Cholelithiasis PLANNED PROCEDRUE: Operation Date: 10/18/21 11:15 Proposed Procedures p Colonoscopy 49430 z12.11(Not Applicable) - Cj Pierre MD Medications/Allergies* Home Medications Medication Instructions Recorded Confirmed Type metoprolol succinate 50 mg PO DAILY 10/13/20 10/18/21 History ferrous sulfate 325 mg (65 mg 325 mg PO .COMPLEX 01/25/21 10/18/21 History iron) tablet metformin 500 mg tablet,extended 500 mg PO DAILY@0700 tab 03/08/21 10/18/21 History release 24 hr atorvastatin 40 mg PO DAILY@2100 04/21/21 10/18/21 History levothyroxine 150 mcg tablet 125 mcg PO DAILY@0700 tab 07/23/21 10/18/21 History clopidogrel [Plavix] 75 mg PO DAILY 10/15/21 10/15/21 History docusate sodium 100 mg capsule 100 mg PO DAILY PRN cap 10/15/21 10/18/21 History Allergies/Adverse Reactions Allergy/AdvReac Type Severity Reaction Status Date / Time No Known Allergies Allergy Verified 10/18/21 10:13 Current Medications: Generic Name Dose Route Start Last Admin Trade Name Freq PRN Reason Stop Dose Admin Sodium Chloride 1,000 mls @ 30 mls/hr 10/18/21 10:15 10/18/21 10:27 Sodium Chloride 0.9% IV 10/19/21 10:14 30 mls/hr .Q24H TOBIAS Administration Pertinent History/Comorbid Conditions* Medical History (Updated 07/26/21 @ 07:37 by Estela Parmar MD) Coronary artery disease [place] in 09/2020 with LAD stent placed Gallstones Hyperlipidemia Hypertension Hypothyroidism Polycystic ovarian syndrome Type 2 diabetes mellitus Surgical History (Updated 12/29/20 @ 18:26 by Mendoza Nicolas MD) History of S/P coronary artery stent placement (09/2020) Had LAD stent placed. 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
--- NOTE | 2021-10-18 11:54 | ANE.PACU2 ---
Inpatient post-anesthesia follow up: Airway intact: Yes Vital signs: Temperature 98 F Pulse Rate 70 Respiratory Rate 18 Blood Pressure 118/78 Pulse Oximetry 100 Oxygen Delivery Me thod Room Air Oxygen Flow Rate Fraction of Inspir ed Oxygen Hydration adequate: Yes Nausea and vomiting: No Pain level: 1 Mental status: Baseline
== END 2021-10-18 12:10 | disposition home or self-care (01) ==
PROVIDERS: Anesthesiology; PCP Family Medicine; Visit Provider Surgery
PROC: 0DJD8ZZ Inspection of Lower Intestinal Tract, Via Natural or Artificial Opening Endoscopic (ICD-10-PCS; CPT 45378; principal; 2021-10-18 11:15)
DX: Z12.11 Encounter for screening for malignant neoplasm of colon (principal); Z12.12 Encounter for screening for malignant neoplasm of rectum; I25.10 Atherosclerotic heart disease of native coronary artery without angina pectoris; Z95.5 Presence of coronary angioplasty implant and graft; I10 Essential (primary) hypertension; E11.9 Type 2 diabetes mellitus without complications; I25.2 Old myocardial infarction; E78.5 Hyperlipidemia, unspecified; E03.9 Hypothyroidism, unspecified; E28.2 Polycystic ovarian syndrome
CPT/HCPCS: 45378; 81025; 84703; 96360; 96361; J2704; J7030

== ENCOUNTER 2022-07-01 09:45 | Outpatient (CLI) | payer BC, SELFPAY ==
--- NOTE | 2022-07-01 09:57 | MM_ITS ---
WS: [id number] SCREENING DIGITAL BREAST TOMOSYNTHESIS MAMMOGRAM WITH CAD HISTORY: SCREENING COMPARISON: 04/13/2021 Bilateral CC and MLO with tomosynthesis and synthetic mammography submitted. Computer aided detection analyzed. Breast composition: There are scattered areas of fibroglandular density. Slightly spiculated 5.3 mm a symmetry just posterior lateral to the nipple. Not definitely seen on the lateral projection. No susp icious calcifications. MM/[place] [id number] IMPRESSION: BI-RADS: 0-Incomplete: Need additional imaging evaluation FOLLOW UP: Need Additional Imaging LEFT breast: Spot compression views (CC ). True ML. Ultrasound to follow if abn ormality persists.
--- NOTE | 2022-07-01 11:00 | USCV_ITS ---
Ira Leal Age: 52 Gender: F : 1970 Exam Date: 07/01/2022 10:40 Ordering Phys: Nomi Dolan M.D ([email or web address]) Technologist: Dilip Umanzor Exam Location: [facility] – [place] Indication: chest pain BP: 140 / 90 HR: 50 Rhythm: Sinus Technical Quality: MEASUREMENTS (Male / Female) Normal Values 2D ECHO LV Diastolic Diameter PLAX 4.8 cm 4.2 - 5.9 / 3.9 - 5.3 cm LV Systolic Diameter PLAX 3.2 cm IVS Diastolic Thickness 0.6 cm 0.6 - 1.0 / 0.6 - 0.9 cm IVS Systolic Thickness 0.8 cm LVPW Diastolic Thickness 1.0 cm 0.6 - 1.0 / 0.6 - 0.9 cm LVPW Systolic Thickness 1.3 cm LVOT Diameter 2.0 cm LV Ejection Fraction 2D Teich 61.0 % LV Ejection Fraction MOD 2C 73.9 % LV Ejection Fraction 2C AL 74.5 % LA Diameter 3.2 cm LA Width 3.0 cm LA Height 4.3 cm RA Width 3.3 cm RA Height 3.6 cm Aorta at Sinotubular Diameter 2.8 cm IVC Diameter 1.4 cm M-MODE Aortic Annulus Diameter 2.7 cm LA Ao Ratio MM 1.2 MV E Point Septal Separation 0.6 cm DOPPLER AV Peak Velocity 121.0 cm/s LVOT Peak Velocity 72.0 cm/s AV Area Cont Eq vti 2.0 cm squared AV Area Cont Eq pk 1.9 cm squared MV Peak Velocity 97.0 cm/s MV Area PHT 6.3 cm squared Mitral E to A Ratio 1.5 MV E' Velocity 50.0 cm/s Mitral E to MV E' Ratio 6.3 Mitral E to LV E' Lateral Ratio 6.8 Mitral E to LV E' Septal Ratio 5.9 TR Peak Velocity 188.5 cm/s TR Peak Gradient 14.2 mmHg TR Mean Velocity 158.1 cm/s TR Mean Gradient 10.5 mmHg TR Velocity Time Integral 57.9 cm Right Atrial Pressure 3.0 mmHg Pulmonary Artery Systolic Pressu 17.2 mmHg PV Peak Velocity 75.0 cm/s RV Acceleration Time 0.1 s RV Ejection Time 0.3 s RV AcT/ET 0.3 FINDINGS Left Ventricle Left ventricle is normal in size. LV systolic function is normal with EF with EF of 55-60%. No regional wall motion abnormalities. Diastolic function is normal Right Ventricle RV is normal in size and function Right Atrium RA is normal in size Left Atrium Left atrium is normal in size Mitral Valve Structurallly normal mitral valve. Trace mitral regurgitation Aortic Valve Aortic valve is normal structurally. No significant stenosis or regurgitation Tricuspid Valve Mild tricuspid regurgitation. Insufficient TR jet to calculate RVSP Pulmonic Valve Not well visualized Pericardium Normal Aorta Normal in size IVC IVC appears to be normal CONCLUSIONS LV systolic function is normal with EF of 55-60% Normal diastolic function Trace mitral regurgitation Mild tricuspid regurgitation Compared to prior echocardiogram from 2019, no significant changes are seen Nomi Dolan MD (Electronically Signed) Final Date: 13 July 2022 20:26 S
== END 2022-07-01 09:46 | disposition home or self-care (01) ==
PROVIDERS: PCP Family Medicine; Visit Provider Internal Medicine
DX: I08.1 Rheumatic disorders of both mitral and tricuspid valves (principal); R07.9 Chest pain, unspecified; Z12.31 Encounter for screening mammogram for malignant neoplasm of breast
CPT/HCPCS: 77063; 77067; 93306

== ENCOUNTER 2022-07-29 08:49 | Outpatient (CLI) | payer BC, SELFPAY ==
--- NOTE | 2022-07-29 08:53 | MM_ITS ---
WS: [id number] ADDITIONAL VIEWS LEFT MAMMOGRAM WITH DIGITAL BREAST TOMOSYNTHESIS. HISTORY: ABNORMAL MAMMOGRAM COMPARISON: 07/01/2022, 04/13/2021 Spot compression views LEFT breast in CC projection and true ML submitted with digital breast tomosyn thesis and . The asymmetry noted on the CC projection only on the screening exam is no longer present with additio nal views. This is likely superimposed fibroglandular densities. No additional imaging necessary. MM/[id number] IMPRESSION: BI-RADS: 2-Benign FOLLOW UP: 1 Year Follow-up LEFT breast asymmetry resolves with additional spot compression views.
== END 2022-07-29 08:50 | disposition home or self-care (01) ==
LOC: RAD 08:50
PROVIDERS: PCP Family Medicine; Visit Provider Family Medicine
DX: N64.89 Other specified disorders of breast (principal); R92.8 Other abnormal and inconclusive findings on diagnostic imaging of breast
CPT/HCPCS: 77061

== ENCOUNTER 2024-03-12 06:00 | Outpatient (RCR) | payer BC, SELFPAY | END 2024-03-19 23:59 | disposition home or self-care (01) | LOC: SPT 06:00 | PROVIDERS: PCP Family Medicine; Visit Provider Podiatrist Foot & Ankle Surgery | DX: M72.2 Plantar fascial fibromatosis (principal) | CPT/HCPCS: L4397 ==

== ENCOUNTER → 2024-03-12 09:12 | Outpatient (BNVA) | payer BC, SELFPAY | PROVIDERS: PCP Family Medicine; Visit Provider Podiatrist Foot & Ankle Surgery | DX: M72.2 Plantar fascial fibromatosis; E11.9 Type 2 diabetes mellitus without complications | CPT/HCPCS: 73630 ==

== ENCOUNTER 2024-12-24 12:58 | Outpatient (CLI) | payer BC, SELFPAY ==
--- NOTE | 2024-12-24 13:04 | CT_ITS ---
WS: [id number] CT NECK WITH CONTRAST HISTORY: RIGHT JAW PAIN TECHNIQUE: Contiguous 2 mm axial images are performed through the neck with intravenous contrast. Sagittal and coronal reformats are also submitted. All CT scans at [facility] use at least one of these dose optimization techniques: automated exposure control; mA and/or kV adjustment per patient size (includes targeted exams where dose is matched to clinical indication); or iterative reconstruction. CONTRAST: CONTRAST: Omnipaque 350; 100 mL IV. DLP: 309.91 mGy.cm COMPARISON: None available. Large dense calcification measuring 12 mm in the RIGHT submandibular gland duct at the submandibular gland hiatus. This stone is just medial to the RIGHT mandibular body. No chronic atrophy or fatty replacement of the gland. There is not a lot of inflammation present. The distal duct appears normal. There is artifact from the patient's dental amalgam obscuring some of the detail of the duct. Parotid gland and sublingual glands are normal. Normal appearance of the tongue base and oropharynx and larynx. There are a few small benign cervical chain lymph nodes. Thyroid is negative. No osseous abnormalities. Visualized portions of the skull base demonstrate no abnormalities. Orbits and globes are within normal limits. No soft tissue masses. Soft tissue mass is heterogeneous with mixed attenuation in the LEFT maxillary sinus. This is probably inspissated secretions related to chronic sinus disease. Lung apices are clear. CT/CT neck w con* [id number] IMPRESSION: 1. Large dense RIGHT submandibular gland duct calcification measuring 12 mm. D uct is positioned at the SMG hiatus. 2. No atrophy or fatty replacement of the RIGHT submandibular gland. There is no significant amount of adjacent inflammation to suggest acute sialoadenitis. 3. Small benign-appearing cervical chain lymph nodes.
[2024-12-24] MEDS: iohexol 350 mg/mL 500 mL Btl (per mL) IV (13:22)
== END 2024-12-24 12:59 | disposition home or self-care (01) ==
PROVIDERS: PCP Family Medicine; Visit Provider Family Medicine
DX: R68.84 Jaw pain (principal); K11.9 Disease of salivary gland, unspecified; K11.5 Sialolithiasis; R59.0 Localized enlarged lymph nodes; R93.89 Abnormal findings on diagnostic imaging of other specified body structures
CPT/HCPCS: 70491

== ENCOUNTER → 2025-08-09 15:22 | Outpatient (BNVA) | payer BC, SELFPAY | PROVIDERS: PCP Family Medicine; Visit Provider Nurse Practitioner | DX: J02.9 Acute pharyngitis, unspecified (principal) | CPT/HCPCS: 87071; 87880 ==